=== PATIENT | female | born 1950 | race Hispanic/Latino ===

== ENCOUNTER 2018-04-23 17:50 | Emergency (ER) | payer MEDICARE, MEDICAID | END 2018-04-23 18:57 | disposition home or self-care (01) | LOC: ERS 17:50 | DX: T63.461A Toxic effect of venom of wasps, accidental (unintentional), initial encounter (principal); E11.9 Type 2 diabetes mellitus without complications; E78.5 Hyperlipidemia, unspecified; I10 Essential (primary) hypertension; F17.210 Nicotine dependence, cigarettes, uncomplicated; Z71.6 Tobacco abuse counseling | CPT/HCPCS: 90471; 99406 ==

== ENCOUNTER 2019-07-22 15:00 | Emergency (ER) | payer MEDICARE, OTHER ==
[2019-07-22] MEDS ORDERED: Lidocaine 1% (PF) 30 ML VIAL ONE (15:39)
[2019-07-22] MEDS ORDERED: Adacel (T-DAP) 0.5 ML SYRINGE ONE (16:44)
== END 2019-07-22 16:55 | disposition home or self-care (01) ==
LOC: ERS 15:00
DX: S61.210A Laceration without foreign body of right index finger without damage to nail, initial encounter (principal); E78.5 Hyperlipidemia, unspecified; I10 Essential (primary) hypertension; F17.210 Nicotine dependence, cigarettes, uncomplicated; F32.9 Major depressive disorder, single episode, unspecified; Z79.84 Long term (current) use of oral hypoglycemic drugs; W45.8XXA Other foreign body or object entering through skin, initial encounter
CPT/HCPCS: 12002; 90471; 90715; J2001

== ENCOUNTER 2019-08-06 15:20 | Emergency (ER) | payer MEDICARE, OTHER | END 2019-08-06 16:10 | disposition home or self-care (01) | LOC: ERS 15:20 | DX: S61.210D Laceration without foreign body of right index finger without damage to nail, subsequent encounter (principal); E11.9 Type 2 diabetes mellitus without complications; E78.5 Hyperlipidemia, unspecified; I10 Essential (primary) hypertension; Z87.891 Personal history of nicotine dependence; Z79.899 Other long term (current) drug therapy; W45.8XXD Other foreign body or object entering through skin, subsequent encounter ==

== ENCOUNTER 2019-08-09 10:56 | Inpatient (IN) | payer MEDICARE, MEDICAID ==
[2019-08-09 11:36] LABS: #Eosinphils 0.1 thou/uL (0.0-0.7); #Lymphocytes 1.2 thou/uL (1.20-3.40); #Monocytes 0.3 thou/uL (0.11-0.59); #Neutrophils 2.9 thou/uL (1.40-6.50); %Basophils 0.7 % (0.0-1.0); %Eosinophils 1.4 % (0.0-10.0); %Monocytes 7.1 % (0.0-10.0); %Neutrophils 63.8 % (42.0-75.0); Hemoglobin 6.4 g/dL (12.0-16.0); Mean Corpuscular HGB CONC 31.2 g/dL (32.0-36.0); Mean Corpuscular Hemoglobin 26.3 pg (27.0-31.0); Mean Platelet Volume 9.1 fL (7.4-10.4); Platelet Count 230 thou/uL (130-400); RBC Distribution Width 16.1 % (11.5-14.5); Red Blood Cell (RBC) Count 2.44 mill/uL (4.20-5.40); White Blood Cell (WBC) Count 4.5 thou/uL (4.8-10.8)
[2019-08-09] MEDS ORDERED: Iopamidol-370 76% 500 ML 1 ML ONE (11:41)
--- NOTE | 2019-08-09 11:43 | RAD ---
EXAM: Chest one view: HISTORY: Dyspnea, shortness of breath COMPARISON: 06/04/2016 FINDINGS: Monitor leads overlie the chest. Heart size: Within normal limits. Lungs: Clear of acute process. No evidence for confluent pneumonia, pleural effusion, acute edema, or pneumothorax, or other signifi cant acute process. IMPRESSION: No significant acute intrathoracic disease. Stable exam.
[2019-08-09 11:52] LABS: ALT (SGPT) 15 U/L (8-55); AST (SGOT) 21 U/L (5-34); Albumin 3.5 g/dL (3.4-4.8); Alkaline Phosphatase 111 U/L (40-110); Anion Gap 7 mmol/L (10-20); BUN (Urea Nitrogen) 6 mg/dL (9.8-20.1); Bilirubin, Total 0.5 mg/dL (0.2-1.2); Calc. Creatinine Clearance 0 mL/min (70-130); Calcium 8.3 mg/dL (7.8-10.44); Carbon Dioxide 26 mmol/L (23-31); Chloride 109 mmol/L (98-107); Estimated GFR-MDRD 86; Glucose 188 mg/dL (80-115); Potassium 3.4 mmol/L (3.5-5.1); Protein, Total 6.5 g/dL (6.0-8.3)
[2019-08-09 11:56] LABS: Sodium 139 mmol/L (136-145)
[2019-08-09 12:21] LABS: HBCM Index 0.08 S/CO (0-0.79); HBSAg Index 0.12 S/CO (0-0.99); Hep A IgM AB Non-Reactive (NonReactive); Hep A IgM S/CO 0.37 S/CO (0-0.79); Hep B Surf Ag Non-Reactive S/CO (NonReactive); Hep C IgG Ab Non-Reactive (NonReactive); Hep C Index 0.08 S/CO (0-0.79); Hepatitis B Core IgM Abs Non-Reactive (NonReactive)
--- NOTE | 2019-08-09 12:26 | CT ---
Exam: Chest abdomen and pelvic CT scan with IV contrast: HISTORY: Dyspnea abdominal pain shortness of breath FINDINGS: No significant acute pulmonary parenchymal process within the chest. No mediastinal mass or adenopath y. No significant pleural effusion or pericardial effusion. There is a [id number] stenosis of the proximal left subclavian artery. There is hepatosplenomegaly. There is some liver nodularity concerning for cirrhosis. Very extensive ascites throughout the abdomen and pelvis. Evidence for portal hypertension with some small perigastric and esophageal varices. Status post cholecystectomy. The portal vein is somewhat enlarged but no evidence for thrombosis. Pancreas and adrenal glands are unremarkable. No renal calculus or acute obstruction. No CT evidence for acute appendicitis. There is some diffuse wall thickening of the colon and also some moderate wall thickening of small bowel, nonspecific, this could well be related to generalized edema, associated with the ascites. Sigmoid colon diverticulosis without acute diverticulitis. Very mild anasarca. IMPRESSION: No significant acute process in the chest. Evidence for hepatosplenomegaly with portal hypertension and very extensive ascites with some fairly diffuse small bowel and colon wall thickening which may well be related to edema in association with the ascites. Small esophageal and gastric varices.
[2019-08-09] MEDS ORDERED: Pantoprazole 40 MG VIAL ONE (14:03)
[2019-08-09] MEDS ORDERED: Ondansetron PF 4 MG/2 ML Vial IVP PRN (15:05)
[2019-08-09] MEDS ORDERED: Dextrose 50% Abboject 50 ML SYRINGE SLOW IVP PRN (15:15)
[2019-08-09] MEDS ORDERED: HumaLOG 300 UNITS/3 ML VIAL SC PRN (15:15)
[2019-08-09] MEDS ORDERED: Dextrose 5% in Water 1,000 ML IV PRN (15:15)
[2019-08-09] MEDS ORDERED: Sodium Chloride 0.9% (PF) 10 ML VIAL FS PRN (18:48)
[2019-08-09 19:13] VITALS: BMI 27.8
--- NOTE | 2019-08-09 21:13 | HP ---
PRESENTING COMPLAINT: Abdominal bloating. HISTORY OF PRESENT ILLNESS: The patient with a past medical history of diabetes mellitus, hypertension, hyperlipidemia, and depression, presented with ongoing abdominal bloating and distention, which is going on for 1 month and today son got concerned and brought her to the hospital. The patient also has been complaining of shortness of breath on exertion and on lying down off and on. The patient denies any swelling of the feet. Denies any wheezing, or chest pain. She complains of mild headache, which is chronic and off and on. Denies any dizziness. Denies runny nose, stuffy nose, or sore throat. Denies any black color stool or blood in stool. As per patient, she had bowel movement this morning, it was brown in color. Her initial workup in the emergency room showed hepatosplenomegaly with portal hypertension and tentative ascites with esophageal and gastric paresis. The patient being admitted for further evaluation. Also, initial workup showed anemia. SYSTEMIC REVIEW: As mentioned above. PAST MEDICAL HISTORY: As mentioned above. PAST SURGICAL HISTORY: History of cholecystectomy, history of right ankle surgery, history of left knee surgery. SOCIAL HISTORY: The patient has a history of 1 to 2 pack cigarettes of smoking. Currently been smoking less than half pack per day. The patient also used to drink 5-6 beers, not been drinking from last 11 years, but has a history of a libertarian drinker. Denies any drug abuse. PHYSICAL EXAMINATION: VITAL SIGNS: Blood pressure 109/51, pulse 75, oxygen saturation 100%, temperature 98.6. GENERAL: The patient lying in bed comfortably, not in any distress. HEENT: Conjunctivae normal. Oral mucosa moist. NECK: Supple. No JVD. No lymphadenopathy. CHEST: Normal vesicular breathing. No rhonchi. No wheezing. Decreased air entry in bilateral lower lung cuevas. HEART: Sound normal. ABDOMEN: Distended. Shifting dullness positive. Fluid thrill positive. Mild edema of feet positive. LABORATORY DATA: CMP unremarkable except potassium 3.4, creatinine 0.68. LFTs normal. Hepatitis A, IgM, hepatitis B surface antigen negative, core antigen negative, C antibody negative. Troponin less than 0.010. CMP unremarkable. Alkaline phosphatase is 111, potassium 3.4, creatinine 0.68. Chest x-ray, no significant acute intrathoracic disease. Stable exam. Chest, abdomen, pelvis CT, no significant acute process in the chest. Evidence of hepatosplenomegaly with portal hypertension. Very extensive ascites with some diffuse fatty, fairly diffuse small bowel and colon wall thickening, which may well to be related to edema in association with ascites, small esophageal and gastric varices. IMPRESSION: 1. Abdominal distention with ascites and gastric varices with portal hypertension, possible underlying chronic liver disease related to history of EtOH abuse in the past. Hepatitis B surface antigen and C antigen are negative. We will continue diuretics at present. We will get GI evaluation. The patient may need diagnostic and therapeutic paracentesis in the morning. We will get GI evaluation. 2. Anemia, possibly related to anemia of chronic disease and possibly related to chronic gastrointestinal bleed. The patient denies any active bleed at present. Had a bowel movement this morning, it was brown in color. We will get stool for occult blood. The patient is currently getting 2 PRBC units in the emergency room. We will repeat H and H in the morning. Continue PPI. 3. Diabetes mellitus. We will continue sliding scale insulin. Continue to monitor blood sugar. 4. Hypertension. Continue to monitor blood pressure. Continue blood pressure medication. 5. Hyperlipidemia. We will get a lipid profile in the morning. 6. Advance directive discussed with the patient and the son, who is present at bedside. The patient is a full code. Job ID: [id number]
[2019-08-09] MEDS: Pantoprazole 40 MG VIAL IVP SCH (21:38)
[2019-08-09] MEDS: Nicotine 7 MG PATCH TD SCH (21:39)
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
[2019-08-10 01:20] LABS: Bacteria/HPF None Seen HPF (None Seen); Bilirubin Negative (Negative); Blood, Urine Negative (Negative); Clarity Clear (Clear); Glucose, Urine (Dipstick) Normal (Negative); Leukocyte Negative Leu/uL (Negative); Nitrite Negative (Negative); Protein, Urine (Dipstick) 10 mg/dL (Neg-Trace); RBC/HPF 0-3 HPF (0-3); Squamous Epithelial 0-3 HPF (0-3); Urobilinogen Normal mg/dL (Less than 2); WBC/HPF 0-3 HPF (0-3)
[2019-08-10] MEDS: Furosemide 40 MG/4 ML VIAL SLOW IVP SCH ×2 (06:05→14:16)
[2019-08-10] MEDS: Pantoprazole 40 MG VIAL IVP SCH ×2 (07:36→20:13)
[2019-08-10 08:41] LABS: #Basophils 0.1 thou/uL (0.0-0.2); #Eosinphils 0.1 thou/uL (0.0-0.7); #Lymphocytes 1.3 thou/uL (1.20-3.40); #Monocytes 0.4 thou/uL (0.11-0.59); #Neutrophils 2.1 thou/uL (1.40-6.50); %Basophils 1.3 % (0.0-1.0); %Eosinophils 1.9 % (0.0-10.0); %Lymphocytes 32.3 % (21.0-51.0); %Monocytes 10.8 % (0.0-10.0); %Neutrophils 53.6 % (42.0-75.0); Hemoglobin 6.7 g/dL (12.0-16.0); Mean Corpuscular HGB CONC 32.2 g/dL (32.0-36.0); Mean Corpuscular Hemoglobin 26.9 pg (27.0-31.0); Mean Corpuscular Volume 83.6 fL (78.0-98.0); Platelet Count 194 thou/uL (130-400); RBC Distribution Width 15.6 % (11.5-14.5); Red Blood Cell (RBC) Count 2.49 mill/uL (4.20-5.40); White Blood Cell (WBC) Count 3.9 thou/uL (4.8-10.8)
[2019-08-10 08:49] LABS: INR-International Normal Ratio 1.1; PTT 31.7 SEC (22.9-36.1); Prothrombin Time 13.7 SEC (12.0-14.7)
[2019-08-10 08:57] LABS: Anion Gap 10 mmol/L (10-20); BUN (Urea Nitrogen) 5 mg/dL (9.8-20.1); Calc. Creatinine Clearance 107 mL/min (70-130); Calcium 8.1 mg/dL (7.8-10.44); Carbon Dioxide 23 mmol/L (23-31); Chloride 109 mmol/L (98-107); Estimated GFR-MDRD Greater than 90; Glucose 96 mg/dL (80-115); Potassium 3.2 mmol/L (3.5-5.1); Sodium 139 mmol/L (136-145)
--- NOTE | 2019-08-10 11:07 | ULT ---
Ultrasound-guided paracentesis: 08/10/2019 HISTORY: Symptomatic ascites FINDINGS: Informed consent obtained prior to the procedure. Preprocedural imaging demonstrated signif icant ascites throughout the abdomen and pelvis. Right lower quadrant prepped and draped in normal sterile fashion and anesthetized with 1% buffered l idocaine. With direct sonographic guidance, 5 Bulgarian Yueh catheter is advanced into the ascites and removal of the stylet yielded yellow fluid. 2.1 L were removed. The patient tolerated the procedure well. No postprocedural complications. A specimen was sent to the laboratory for assessment. IMPRESSION: Successful ultrasound-guided paracentesis yielding 2.1 L of yellow fluid.
--- NOTE | 2019-08-10 12:06 | PRG ---
DATE OF SERVICE: 08/10/2019 SUBJECTIVE: Ms. Sakshi Ledesma is very pleasant 68-year-old female, hospitalized with abdominal distention and dyspnea. She was found to have ascites on admission. She underwent a large volume paracentesis with drainage of 2.5 L per day. The fluid was sent for culture, chemistries, and also cytology. She is feeling better after the paracentesis. She has no abdominal pain. She is not having difficulty breathing. OBJECTIVE: GENERAL: She appears relatively comfortable as she is not short winded. VITAL SIGNS: Temperature 98.1 degrees Fahrenheit, pulse is 76, blood pressure 107/58. CARDIOVASCULAR: Within normal limits. LUNGS: Within normal limits. ABDOMEN: Softer. There is distention. Abdomen is nontender. EXTREMITIES: Reveal no edema. LABORATORY DATA: From today, CBC; WBC 3900, hemoglobin 6.7, hematocrit 20.8, MCV 83.6, platelet count 194,000. Chem-7, normal except for potassium of 3.2. RECOMMENDATIONS: 1. Low-sodium diet. 2. We will plan for EGD tomorrow. Job ID: [id number]
[2019-08-10 12:43] LABS: RBC Count-Automated (BF) 0 /cumm; WBC/Nucleated-Auto (BF) 304 uL
[2019-08-10 13:29] LABS: BF Color Yellow; Body Fluid Source Ascites Body Fluid; Clarity Hazy (Clear); Tube # 1
[2019-08-10 13:38] LABS: BF Segmented Neutrophils 13 %; Cell Count Non Hematic 51 %; Eosinophils 3 %; Lymphocytes 33 %
--- NOTE | 2019-08-10 14:23 | PDOC.HOSPP ---
- Subjective Encounter Date: 08/10/19 Encounter Time: 13:00 Subjective: no abd pain or sob now feels better - Objective Vital Signs & Weight: Vital Signs (12 hours) Temp Pulse Resp BP Pulse Ox 08/10/19 11:37 98.1 F 76 20 107/58 L 98 08/10/19 10:45 98.1 F 74 20 97/56 L 97 08/10/19 07:40 98.5 F 84 20 99/60 99 08/10/19 07:35 99 08/10/19 06:07 76 115/60 08/10/19 04:00 98.7 F 77 16 109/56 L 97 Weight Admit Weight 162 lb 9 oz Weight 162 lb 9 oz I&O: 08/09/19 08/10/19 08/11/19 06:59 06:59 06:59 Intake Total 720 0 Balance 720 0 Result Diagrams: 08/10/19 06:45 08/10/19 06:45 Additional Labs: Accuchecks 08/10/19 08/10/19 08/09/19 11:57 04:39 20:09 POC Glucose 126 H 103 114 H Hospitalist ROS - Medication Medications: Active Medications Generic Name Dose Route Start Last Admin Trade Name Benjaminq PRN Reason Stop Dose Admin Furosemide 40 mg 08/10/19 06:00 08/10/19 14:16 Lasix SLOW IVP 40 mg 0600,1400 KINGA Administration Nicotine 7 mg 08/09/19 21:00 08/09/19 21:39 Nicoderm Patch TD 7 mg Q24HR KINGA Administration Pantoprazole Sodium 40 mg 08/09/19 21:00 08/10/19 07:36 Protonix IVP 40 mg Q12HR KINGA Administration Sodium Chloride 10 ml 08/09/19 21:00 08/10/19 07:36 Flush - Normal Saline IVF 10 ml Q12HR KINGA Administration - Exam General Appearance: NAD, awake alert Eye: PERRL, anicteric sclera ENT: no oropharyngeal lesions, moist mucosa Neck: supple, no JVD Heart: RRR, no murmur Respiratory: no wheezes, no rales Gastrointestinal: soft, non-tender, normal bowel sounds Gastrointestinal - other findings: ascites++ Extremities: no cyanosis, no edema Neurological: cranial nerve grossly intact, no focal deficits Psychiatric: normal affect, A&O x 3 Hosp A/P (1) Cirrhosis Code(s): K74.60 - UNSPECIFIED CIRRHOSIS OF LIVER Status: Acute Qualifiers: Hepatic cirrhosis type: alcoholic cirrhosis Ascites presence: with ascites Qualified Code(s): K70.31 - Alcoholic cirrhosis of liver with ascites (2) Ascites Code(s): R18.8 - OTHER ASCITES Status: Acute Qualifiers: Ascites type: due to alcoholic cirrhosis Qualified Code(s): K70.31 - Alcoholic cirrhosis of liver with ascites (3) DM type 2 (diabetes mellitus, type 2) Status: Chronic Qualifiers: Diabetes mellitus terminal computer operator insulin use: without terminal computer operator use (4) HTN (hypertension) Code(s): I10 - ESSENTIAL (PRIMARY) HYPERTENSION Status: Chronic Qualifiers: Hypertension type: essential hypertension Qualified Code(s): I10 - Essential (primary) hypertension (5) Dyslipidemia Code(s): E78.5 - HYPERLIPIDEMIA, UNSPECIFIED Status: Chronic (6) Depression Code(s): F32.9 - MAJOR DEPRESSIVE DISORDER, SINGLE EPISODE, UNSPECIFIED Status : Chronic Qualifiers: Depression Type: major depressive disorder (7) Chronic anemia Code(s): D64.9 - ANEMIA, UNSPECIFIED Status: Chronic - Plan total of 2 u prbc given this hosp had paracentesis with removal of 2.1 L yellow fluid for EGD in am, has varices on CT continue protonix, lasix, will add nonselective BB in am after EGD hep panel is -ve, stopped drinking heavy alc 11 yrs ago hemostable labs in am
[2019-08-10] MEDS: Potassium Chloride 20 MEQ TAB PO SCH ×2 (18:16→23:55)
[2019-08-10] MEDS: Nicotine 7 MG PATCH TD SCH (20:13)
[2019-08-11] MEDS: Potassium Chloride 20 MEQ TAB PO SCH ×2 (05:42→12:07)
[2019-08-11] MEDS: Furosemide 40 MG/4 ML VIAL SLOW IVP SCH (05:43)
[2019-08-11] MEDS: Pantoprazole 40 MG VIAL IVP SCH (08:22)
[2019-08-11] MEDS ORDERED: Ondansetron HCl/PF 4 MG/2 ML Vial IVP PRN (08:40)
[2019-08-11] MEDS ORDERED: Lidocaine 1% PF 5 ML VIAL ONE (09:39)
[2019-08-11] MEDS ORDERED: PROPOFOL 200 MG/20 ML VIAL ONE (09:39)
--- NOTE | 2019-08-11 11:03 | OP ---
DATE OF PROCEDURE: 08/11/2019 PROCEDURE PERFORMED: Esophagogastroduodenoscopy with biopsy. PREOPERATIVE DIAGNOSES: This is a 68-year-old female with anemia, history of tarry stools 3 weeks ago. The patient underwent esophagogastroduodenoscopy. POSTOPERATIVE DIAGNOSES: 1. Three columns of 4+ varicosities distal esophagus, nonbleeding. 2. No gastric varices seen. 3. Small ulcer of the gastric antrum. 4. Ulcer duodenal bulb. DESCRIPTION OF PROCEDURE: The patient was placed on her left lateral position and was given sedation by Anesthesia Department. A Pentax video gastroscope under direct vision passed down the oropharynx, past the GE junction into the stomach. The patient had three columns of 4+ varicosities over the distal esophagus. There was no stigmata of recent bleeding seen. In the GE junction, no lesion seen. Retroflexion failed to show any pathology in the fundus and cardia. There were no gastric varices seen. In the gastric body, no lesions seen. The gastric antrum showed a small shallow ulceration. In the incisura angularis, no lesion seen. The duodenal bulb showed ulceration. In the descending duodenum, no pathology seen. Biopsy obtained of the gastric antrum and gastric body. The stomach was decompressed and the scope removed. RECOMMENDATIONS: 1. Start the patient on propranolol long-acting 20 mg once a day. 2. Start the patient on Lasix 40 once a day. 3. Aldactone 50 once a day. 4. Pantoprazole 40 once a day. Job ID: [id number]
[2019-08-11 12:42] LABS: #Eosinphils 0.1 thou/uL (0.0-0.7); #Lymphocytes 1.1 thou/uL (1.20-3.40); #Monocytes 0.3 thou/uL (0.11-0.59); %Basophils 0.7 % (0.0-1.0); %Monocytes 8.2 % (0.0-10.0); %Neutrophils 58.1 % (42.0-75.0); Hemoglobin 7.8 g/dL (12.0-16.0); Mean Corpuscular HGB CONC 32.1 g/dL (32.0-36.0); Mean Corpuscular Hemoglobin 27.1 pg (27.0-31.0); Mean Corpuscular Volume 84.6 fL (78.0-98.0); Mean Platelet Volume 8.8 fL (7.4-10.4); Platelet Count 144 thou/uL (130-400); RBC Distribution Width 15.8 % (11.5-14.5); Red Blood Cell (RBC) Count 2.89 mill/uL (4.20-5.40); White Blood Cell (WBC) Count 3.5 thou/uL (4.8-10.8)
[2019-08-11 13:15] LABS: ALT (SGPT) 14 U/L (8-55); AST (SGOT) 34 U/L (5-34); Albumin 3.3 g/dL (3.4-4.8); Alkaline Phosphatase 107 U/L (40-110); Anion Gap 10 mmol/L (10-20); BUN (Urea Nitrogen) 7 mg/dL (9.8-20.1); Bilirubin, Total 0.7 mg/dL (0.2-1.2); Calc. Creatinine Clearance 88 mL/min (70-130); Calcium 8.1 mg/dL (7.8-10.44); Carbon Dioxide 25 mmol/L (23-31); Chloride 108 mmol/L (98-107); Estimated GFR-MDRD 84; Globulin 2.9 g/dL (2.4-3.5); Glucose 196 mg/dL (80-115); Potassium 3.6 mmol/L (3.5-5.1); Protein, Total 6.2 g/dL (6.0-8.3); Sodium 139 mmol/L (136-145)
--- NOTE | 2019-08-11 13:32 | PDOC.HOSPP ---
- Subjective Encounter Date: 08/11/19 Encounter Time: 09:00 Subjective: no abd pain or sob - Objective Vital Signs & Weight: Vital Signs (12 hours) Temp Pulse Resp BP Pulse Ox 08/11/19 11:25 97.8 F 72 20 105/64 100 08/11/19 10:57 98 F 71 20 107/52 L 98 08/11/19 07:19 98.6 F 76 20 92/47 L 99 08/11/19 05:44 106/58 L 08/11/19 04:00 97.7 F 74 16 95/56 L 93 L Weight Admit Weight 162 lb 9 oz Weight 162 lb 9 oz I&O: 08/10/19 08/11/19 08/12/19 06:59 06:59 06:59 Intake Total 720 1610 Output Total 2100 Balance 720 -490 Result Diagrams: 08/11/19 12:32 08/11/19 12:32 Additional Labs: Accuchecks 08/11/19 08/11/19 08/10/19 11:29 05:07 19:34 POC Glucose 114 H 127 H 128 H 08/10/19 16:01 POC Glucose 156 H Hospitalist ROS - Medication Medications: Active Medications Generic Name Dose Route Start Last Admin Trade Name Freq PRN Reason Stop Dose Admin Insulin Human Lispro 0 units 08/09/19 15:15 08/10/19 16:47 Humalog SC 2 unit .MILD SLIDING SCALE PRN Administration Mild Correctional Scale Nicotine 7 mg 08/09/19 21:00 08/10/19 20:13 Nicoderm Patch TD 7 mg Q24HR KINGA Administration Sodium Chloride 10 ml 08/09/19 21:00 08/11/19 08:22 Flush - Normal Saline IVF 10 ml Q12HR KINGA Administration - Exam General Appearance: awake alert Eye: PERRL, anicteric sclera ENT: no oropharyngeal lesions, moist mucosa Neck: supple, no JVD Heart: RRR, no murmur Respiratory: no wheezes, no rales Gastrointestinal: soft, non-tender, normal bowel sounds Extremities: no cyanosis, no edema Neurological: cranial nerve grossly intact, no focal deficits Psychiatric: normal affect, A&O x 3 Hosp A/P (1) Cirrhosis Code(s): K74.60 - UNSPECIFIED CIRRHOSIS OF LIVER Status: Acute Qualifiers: Hepatic cirrhosis type: alcoholic cirrhosis Ascites presence: with ascites Qualified Code(s): K70.31 - Alcoholic cirrhosis of liver with ascites (2) Ascites Code(s): R18.8 - OTHER ASCITES Status: Acute Qualifiers: Ascites type: due to alcoholic cirrhosis Qualified Code(s): K70.31 - Alcoholic cirrhosis of liver with ascites (3) DM type 2 (diabetes mellitus, type 2) Status: Chronic Qualifiers: Diabetes mellitus terminal carman insulin use: without terminal carman use (4) HTN (hypertension) Code(s): I10 - ESSENTIAL (PRIMARY) HYPERTENSION Status: Chronic Qualifiers: Hypertension type: essential hypertension Qualified Code(s): I10 - Essential (primary) hypertension (5) Dyslipidemia Code(s): E78.5 - HYPERLIPIDEMIA, UNSPECIFIED Status: Chronic (6) Depression Code(s): F32.9 - MAJOR DEPRESSIVE DISORDER, SINGLE EPISODE, UNSPECIFIED Status : Chronic Qualifiers: Depression Type: major depressive disorder (7) Chronic anemia Code(s): D64.9 - ANEMIA, UNSPECIFIED Status: Chronic (8) Duodenal ulcer Status: Acute - Plan total of 2 u prbc given this hospitalization, Hb stable this am, no signs of active bleeding on EGD had paracentesis with removal of 2.1 L yellow fluid EGD shows esophageal varices, no gastric varices, had duodenal ulcer with no active bleeding. continue protonix, lasix, spironolactone and propranolol. hep panel is -ve, stopped drinking heavy alc 11 yrs ago hemostable labs in am dc plan in am if stable, sbp around 100 asymptomatic
[2019-08-11] MEDS: Spironolactone 25 MG TAB PO SCH (16:46)
[2019-08-11] MEDS: Nicotine 7 MG PATCH TD SCH (20:52)
[2019-08-11] MEDS: Propranolol HCl 20 MG TAB PO SCH (20:52)
[2019-08-12 06:48] LABS: #Eosinphils 0.1 thou/uL (0.0-0.7); #Lymphocytes 1.2 thou/uL (1.20-3.40); #Monocytes 0.3 thou/uL (0.11-0.59); #Neutrophils 1.7 thou/uL (1.40-6.50); %Basophils 0.4 % (0.0-1.0); %Eosinophils 2.3 % (0.0-10.0); %Lymphocytes 36.2 % (21.0-51.0); %Monocytes 9.2 % (0.0-10.0); Hemoglobin 7.4 g/dL (12.0-16.0); Mean Corpuscular HGB CONC 31.7 g/dL (32.0-36.0); Mean Corpuscular Volume 85.3 fL (78.0-98.0); Mean Platelet Volume 9.1 fL (7.4-10.4); Platelet Count 124 thou/uL (130-400); Red Blood Cell (RBC) Count 2.73 mill/uL (4.20-5.40); White Blood Cell (WBC) Count 3.2 thou/uL (4.8-10.8)
[2019-08-12 07:10] LABS: ALT (SGPT) 17 U/L (8-55); AST (SGOT) 35 U/L (5-34); Albumin 3.1 g/dL (3.4-4.8); Alkaline Phosphatase 107 U/L (40-110); Anion Gap 8 mmol/L (10-20); BUN (Urea Nitrogen) 8 mg/dL (9.8-20.1); Bilirubin, Total 0.5 mg/dL (0.2-1.2); Calc. Creatinine Clearance 105 mL/min (70-130); Calcium 7.8 mg/dL (7.8-10.44); Carbon Dioxide 23 mmol/L (23-31); Chloride 111 mmol/L (98-107); Estimated GFR-MDRD Greater than 90; Globulin 2.8 g/dL (2.4-3.5); Glucose 112 mg/dL (80-115); Potassium 3.7 mmol/L (3.5-5.1); Protein, Total 5.9 g/dL (6.0-8.3); Sodium 138 mmol/L (136-145)
[2019-08-12] MEDS: Spironolactone 25 MG TAB PO SCH ×2 (08:49→17:02)
[2019-08-12] MEDS: Propranolol HCl 20 MG TAB PO SCH ×3 (08:51→21:02)
[2019-08-12] MEDS: Furosemide 40 MG TAB PO SCH (08:51)
--- NOTE | 2019-08-12 13:15 | PQF ---
CLINICAL DOCUMENTATION IMPROVEMENT CLARIFICATION FORM: ICD-10 Updated PLEASE DO AN ADDENDUM TO THE PROGRESS NOTE WITH ANY DOCUMENTATION UPDATES OR ADDITIONS AND CARRY THROUGH TO DC SUMMARY. THANK YOU. Date: 08/12/2019 ATTN: Dr. Greenfield Please exercise your independent, professional judgment in responding to the clarification form. Clinical indicators are provided on the bottom of this form for your review Please check appropriate box(s): [ ] Protein Calorie Malnutrition: [ ] Mild [ ] Moderate [ ] Severe [ ] Other Malnutrition (please specify) [ ] Underweight without malnutrition [ ] Cachexia [ x] Other diagnosis _has cirrhosis with low albumin [ ] Unable to determine In addition, please specify: Present on Admission (POA): [x ] Yes [ ] No [ ] Unable to determine CLINICAL INDICATORS - SIGNS / SYMPTOMS / LABS / RESULTS AND LOCATION IN MR 08/09 ( Aracelis) : The pt tells me she has lost nearly about 40 pounds over the last probably 1 year or so. She used to weigh 200 pounds before , now her weight is down to 160 pounds. Deputy Manager Assessment 08/10: Nutrition diagnosis: Malnutrition related to cirrhosis, ascites, early satiety As Evidenced By patient and family report of very limited PO intake x1 year likely meeting <50% of estimated needs, 26% weight loss in 1 year based on admit weight now with a 2.1 L removed s/p paracentesis suggestive of severe malnutrition in the context of chronic illness. RISKS: 08/09 ( Aracelis) The patient has history of chronic alcohol abuse for several years. 08/10 ( Jean Pierre) Alcoholic cirrhosis of liver with ascites. TREATMENT: Deputy Manager Assessment 08/10: for MST Score 5 ( > 34 lb wt loss, poor appetite) Order 08/10: Supp: Albertina Dietrich BID Moderate Malnutrition (in acute illness) Energy Intake: <75% of estimated energy requirement for > 7 days Weight Loss: 1-2%/1 week; 5%/ 1 month; 7.5%/3 months Other: mild body fat loss; mild muscle mass loss; mild fluid accumulation; Severe Malnutrition (in acute illness) Energy Intake: < 50% of estimated energy requirement for > 5 days Weight Loss: >1-2%/1 week; >5%/1 month; >7.5%/3 months Other: moderate body fat loss; moderate muscle mass loss; moderate- severe fluid accumulation; measurably reduced director of sales strength Moderate Malnutrition (in chronic illness) Energy Intake: <75% of estimated energy requirement for >1 month Weight Loss: 5%/1 month; 7.5%/3 months; 10%/6 months; 20%/1 year Other: mild body fat loss; mild muscle mass loss; mild fluid accumulation Severe Malnutrition (in chronic illness) Energy Intake: <75% of estimated energy requirement for >1 month Weight Loss: >5%/1 month; >7.5%/3 months; >10%/6 months; >20%/1 year Other: severe body fat loss; severe muscle mass loss; severe fluid accumulation; measurably reduced director of sales strength Thank you, Ramona (This form is maintained as a part of the permanent medical record) 2015 [employer]. All Rights Reserved Ramona Yeh RN, BSN [email or web address] Office: [phone] [facility]
--- NOTE | 2019-08-12 14:29 | PDOC.HOSPP ---
- Subjective Encounter Date: 08/12/19 Encounter Time: 08:15 Subjective: no abd pain or nausea no active bleeding is ambulating in room, no dizziness - Objective Vital Signs & Weight: Vital Signs (12 hours) Temp Pulse Resp BP Pulse Ox 08/12/19 12:00 98.1 F 66 18 97/59 L 100 08/12/19 08:53 98 08/12/19 08:48 98/60 08/12/19 07:20 98.3 F 71 20 92/49 L 98 08/12/19 04:00 98.0 F 77 16 97/59 L 97 Weight Admit Weight 162 lb 9 oz Weight 162 lb 9 oz I&O: 08/11/19 08/12/19 08/13/19 06:59 06:59 06:59 Intake Total 1610 1300 Output Total 2100 Balance -490 1300 Result Diagrams: 08/12/19 06:19 08/12/19 06:19 Additional Labs: Accuchecks 08/12/19 08/12/19 08/11/19 11:25 04:42 19:40 POC Glucose 112 H 111 H 173 H 08/11/19 16:09 POC Glucose 135 H Hospitalist ROS - Medication Medications: Active Medications Generic Name Dose Route Start Last Admin Trade Name Freq PRN Reason Stop Dose Admin Furosemide 40 mg 08/12/19 09:00 08/12/19 08:51 Lasix PO 40 mg DAILY KINGA Administration Insulin Human Lispro 0 units 08/09/19 15:15 08/10/19 16:47 Humalog SC 2 unit .MILD SLIDING SCALE PRN Administration Mild Correctional Scale Nicotine 7 mg 08/09/19 21:00 08/11/19 20:52 Nicoderm Patch TD 7 mg Q24HR KINGA Administration Pantoprazole Sodium 40 mg 08/12/19 09:00 08/12/19 08:50 Protonix PO 40 mg DAILY KINGA Administration Propranolol HCl 20 mg 08/11/19 21:00 08/12/19 09:00 Inderal PO 20 mg BID KINGA Administration Sodium Chloride 10 ml 08/09/19 21:00 08/12/19 08:51 Flush - Normal Saline IVF 10 ml Q12HR KINGA Administration Spironolactone 25 mg 08/11/19 17:00 08/12/19 08:49 Aldactone PO 25 mg BID-WM KINGA Administration - Exam General Appearance: NAD, awake alert Eye: PERRL, anicteric sclera ENT: no oropharyngeal lesions, moist mucosa Neck: supple, no JVD Heart: RRR, no murmur Respiratory: no wheezes, no rales Gastrointestinal: soft, non-tender, non-distended, normal bowel sounds Extremities: no cyanosis, no edema Neurological: cranial nerve grossly intact, no focal deficits Psychiatric: normal affect, A&O x 3 Hosp A/P (1) Cirrhosis Code(s): K74.60 - UNSPECIFIED CIRRHOSIS OF LIVER Status: Acute Qualifiers: Hepatic cirrhosis type: alcoholic cirrhosis Ascites presence: with ascites Qualified Code(s): K70.31 - Alcoholic cirrhosis of liver with ascites (2) Ascites Code(s): R18.8 - OTHER ASCITES Status: Acute Qualifiers: Ascites type: due to alcoholic cirrhosis Qualified Code(s): K70.31 - Alcoholic cirrhosis of liver with ascites (3) DM type 2 (diabetes mellitus, type 2) Status: Chronic Qualifiers: Diabetes mellitus skilled nursing insulin use: without tool sharpener use (4) HTN (hypertension) Code(s): I10 - ESSENTIAL (PRIMARY) HYPERTENSION Status: Chronic Qualifiers: Hypertension type: essential hypertension Qualified Code(s): I10 - Essential (primary) hypertension (5) Dyslipidemia Code(s): E78.5 - HYPERLIPIDEMIA, UNSPECIFIED Status: Chronic (6) Depression Code(s): F32.9 - MAJOR DEPRESSIVE DISORDER, SINGLE EPISODE, UNSPECIFIED Status : Chronic Qualifiers: Depression Type: major depressive disorder (7) Chronic anemia Code(s): D64.9 - ANEMIA, UNSPECIFIED Status: Chronic (8) Duodenal ulcer Status: Acute - Plan total of 3 u prbc given this hospitalization, Hb around 7g, no signs of active bleeding on EGD had paracentesis with removal of 2.1 L yellow fluid EGD shows esophageal varices, no gastric varices, had duodenal ulcer with no active bleeding. continue protonix, lasix, spironolactone and propranolol, add midodrine for low sbp (asymptomatic now) hep panel is -ve, stopped drinking heavy alc 11 yrs ago hemostable dc plan in am, d/w
--- NOTE | 2019-08-12 15:31 | PRG ---
DATE OF SERVICE: 08/12/2019 SUBJECTIVE: This is a 68-year-old female hospitalized for ascites. The patient has no prior history of liver disease. She had an abdominal CAT scan done. It did show nodular liver, ascites. She underwent paracentesis over the weekend. The fluid is go in favor of liver cirrhosis. The patient had done well after the paracentesis. She feels better. No abdominal pain. No nausea or vomiting. She had anemia on admission, her hemoglobin stays around 6.7 to 7.8 and today 7.4. She has no overt bleeding. The patient has still ascites, but not as bad as before. She is on a low-sodium diet. She also has esophageal varices during EGD. There were nonbleeding. The patient also is on pantoprazole. She offers no complaints. She denies abdominal pain, any dark stools, nausea, or vomiting. PHYSICAL EXAMINATION: GENERAL: Appears very comfortable. VITAL SIGNS: Stable. Temperature 98.1 degrees Fahrenheit, pulse is 66, and blood pressure 97/59. CARDIOVASCULAR: Lungs within normal limits. ABDOMEN: Soft. Abdomen is distended with ascites. Abdomen is nontender. No organomegaly. No masses. CLINICAL IMPRESSION: 1. Liver cirrhosis due to alcohol abuse. She has stopped drinking several years ago. 2. Ascites. 3. Portal hypertension, esophageal varices. 4. Gastric ulcer. RECOMMENDATIONS: 1. Start the patient on midodrine 5 mg p.o. 3 times a day. 2. Low-dose Lasix and Aldactone. 3. May transfuse one more unit of blood before she can go home. She will come back to see me in the next couple of weeks. We will make a referral to a liver transplant program in [place]. Job ID: [id number]
[2019-08-12] MEDS: Nicotine 7 MG PATCH TD SCH (21:02)
[2019-08-12] MEDS: Midodrine HCl 5 MG TAB PO SCH (21:02)
[2019-08-13 07:56] LABS: #Eosinphils 0.1 thou/uL (0.0-0.7); #Lymphocytes 1.3 thou/uL (1.20-3.40); #Monocytes 0.4 thou/uL (0.11-0.59); #Neutrophils 1.7 thou/uL (1.40-6.50); %Basophils 0.5 % (0.0-1.0); %Eosinophils 3.8 % (0.0-10.0); %Lymphocytes 37.3 % (21.0-51.0); %Monocytes 10.5 % (0.0-10.0); %Neutrophils 47.9 % (42.0-75.0); Hemoglobin 9.3 g/dL (12.0-16.0); Mean Corpuscular HGB CONC 32.1 g/dL (32.0-36.0); Mean Corpuscular Hemoglobin 27.6 pg (27.0-31.0); Mean Corpuscular Volume 85.8 fL (78.0-98.0); Mean Platelet Volume 9.3 fL (7.4-10.4); Platelet Count 115 thou/uL (130-400); RBC Distribution Width 15.5 % (11.5-14.5); Red Blood Cell (RBC) Count 3.36 mill/uL (4.20-5.40); White Blood Cell (WBC) Count 3.6 thou/uL (4.8-10.8)
[2019-08-13 08:07] LABS: Anion Gap 11 mmol/L (10-20); BUN (Urea Nitrogen) 9 mg/dL (9.8-20.1); Calc. Creatinine Clearance 95 mL/min (70-130); Carbon Dioxide 22 mmol/L (23-31); Chloride 110 mmol/L (98-107); Estimated GFR-MDRD Greater than 90; Glucose 111 mg/dL (80-115); Potassium 3.7 mmol/L (3.5-5.1); Sodium 139 mmol/L (136-145)
[2019-08-13] MEDS: Furosemide 40 MG TAB PO SCH (08:37)
[2019-08-13] MEDS: Spironolactone 25 MG TAB PO SCH (08:37)
[2019-08-13] MEDS: Propranolol HCl 20 MG TAB PO SCH (08:37)
[2019-08-13] MEDS: Midodrine HCl 5 MG TAB PO SCH (08:37)
[2019-08-13 11:43] VITALS: BP 101/53; TEMP 97.5
--- NOTE | 2019-08-14 13:50 | DIS ---
DATE OF ADMISSION: 08/09/2019 DATE OF DISCHARGE: 08/13/2019 DISCHARGE DISPOSITION: Home. PRIMARY DISCHARGE DIAGNOSES: New onset cirrhosis due to prior history of heavy alcohol abuse; ascites, status post paracentesis; chronic anemia; diabetes mellitus, type 2; hypertension; dyslipidemia; depression; duodenal ulcer. PROCEDURES DONE DURING HOSPITALIZATION: The patient has had abdominal paracentesis done with removal of 2.[address] chest, abdomen and pelvis done on the day of admission showed hepatosplenomegaly with portal hypertension and very extensive ascites with fairly diffuse small bowel and colonic wall thickening, small esophageal and gastric varices. Upper endoscopy done by Dr. Hsu on 08/11/2019 showed three columns of 4+ varicosities in the distal esophagus, which were not bleeding. No gastric varices were seen. Small ulcer in the gastric antrum. There was ulcer in the duodenal bulb. Gastric biopsy histopathology shows no H pylori organisms. There is chronic inactive gastritis with intestinal metaplasia seen. Ascitic fluid culture showed no growth in 4 days. H and H 9.3 and 28 on the day of discharge. Initial H and H were 6.4 and 20. MCV is 84, platelet count 230. BUN 9, creatinine 0.6, total bilirubin 0.5, AST 35, ALT 17, alkaline phosphatase 107, albumin is 3.1. BUN 8 and creatinine 0.5. PT, INR, and PTT within normal limits. Hepatitis panel was negative. INPATIENT CONSULT: Dr. Hsu for Gastroenterology. DISCHARGE PLAN: The patient to follow up with Dr. Isa Steven, primary care physician, in 1 week. She needs to follow up with Dr. Hsu, house painter, in 2 weeks. DISCHARGE MEDICATIONS: 1. Metformin 500 mg p.o. twice daily. 2. Oxybutynin extended release 5 mg p.o. daily. 3. Crestor 20 mg p.o. daily. 4. Lasix 40 mg p.o. daily. 5. Midodrine 5 mg twice daily. 6. Protonix 40 mg p.o. daily. 7. Propranolol 20 mg twice daily. 8. Spironolactone 25 mg twice daily. ALLERGIES: NO KNOWN DRUG ALLERGIES. BRIEF COURSE DURING HOSPITALIZATION: The patient initially got hospitalized on the with complaints of abdominal bloating. She was found to have had ascites clinically and had a CT chest and abdomen done. The patient had findings of ascites with hepatosplenomegaly and varices in the esophagus and stomach. Her initial hemoglobin was 6. Gastroenterology consultation with Dr. Hsu was requested. The patient had prior history of heavy alcohol abuse and had quit 11 years back. Upper endoscopy done showed four columns of varices in the esophagus, but none in the stomach. There was no active bleeding. She was also found to have had ulcer in the gastric antrum and in the duodenal bulb. The patient received a total of 3 units of packed cell during her stay here. Her discharge hemoglobin is around 9 g. The patient's medications have been optimized for cirrhosis to prevent recurrent ascites. She is on propranolol, spironolactone, Protonix, and Lasix. Midodrine was added due to low blood pressures with systolic blood pressures in the 90s, although she was asymptomatic. Please note, I have seen and examined the patient on the day of discharge. She is hemodynamically stable and has been cleared for discharge by Dr. Hsu. Job ID: [id number]
== END 2019-08-13 11:43 | disposition home or self-care (01) | DRG 433 ==
LOC: ERS 10:56 → T4-A 14:40
PROVIDERS: ADMIT Internal Medicine; ATTEND Internal Medicine
PROC: 0W9G3ZZ Drainage of Peritoneal Cavity, Percutaneous Approach (ICD-10-PCS; principal; 2019-08-10)
PROC: 0DB68ZX Excision of Stomach, Via Natural or Artificial Opening Endoscopic, Diagnostic (ICD-10-PCS; 2019-08-11)
DX: K70.31 Alcoholic cirrhosis of liver with ascites (principal); K76.6 Portal hypertension; I85.00 Esophageal varices without bleeding; K26.3 Acute duodenal ulcer without hemorrhage or perforation; E78.5 Hyperlipidemia, unspecified; I10 Essential (primary) hypertension; E11.9 Type 2 diabetes mellitus without complications; F32.9 Major depressive disorder, single episode, unspecified; D64.9 Anemia, unspecified; F17.210 Nicotine dependence, cigarettes, uncomplicated; Z90.49 Acquired absence of other specified parts of digestive tract
CPT/HCPCS: 36415; 36416; 36430; 49083; 71045; 71260; 74177; 80048; 80053; 80074; 81001; 82945; 83605; 83615; 83880; 84157; 84484; 85025; 85060; 85610; 85730; 86850; 86900; 86901; 87070; 87205; 88305; 88312; 88342; 89051; 93005; 94760; 96374; C9113; J1940; J2001; J2704; P9016; Q9967

== ENCOUNTER 2020-10-21 13:57 | Inpatient (IN) | payer MEDICARE, MEDICAID ==
[~2020-10-21 13:57] MED LIST: Heparin 10,000 UNITS/ 10 ML VIAL ONE
[2020-10-21] MEDS ORDERED: Calcium Gluc 4.6 MEQ/10 ML (100 MG/ML) ONE ×2 (14:11→14:27)
--- NOTE | 2020-10-21 14:45 | RAD ---
PORTABLE CHEST: 10/21/20 HISTORY: Dyspnea. COMPARISON: 08/09/19 exam. Heart size is within normal limits. There are atherosclerotic changes of the aorta. The lungs are nicolette ar of any infiltrative process. No significant bony findings. IMPRESSION: No active intrathoracic disease. POS: [facility]
[2020-10-21 14:52] LABS: #Basophils 0.1 thou/uL (0.0-0.2); #Eosinphils 0.1 thou/uL (0.0-0.7); #Monocytes 0.6 thou/uL (0.11-0.59); #Neutrophils 5.7 thou/uL (1.40-6.50); %Basophils 0.8 % (0.0-1.0); %Lymphocytes 32.3 % (21.0-51.0); %Neutrophils 59.9 % (42.0-75.0); Hemoglobin 11.3 g/dL (12.0-16.0); Mean Corpuscular HGB CONC 32.6 g/dL (32.0-36.0); Mean Corpuscular Hemoglobin 29.1 pg (27.0-31.0); Mean Corpuscular Volume 89.5 fL (78.0-98.0); Mean Platelet Volume 9.5 fL (7.4-10.4); Platelet Count 197 thou/uL (130-400); RBC Distribution Width 15.3 % (11.5-14.5); Red Blood Cell (RBC) Count 3.89 mill/uL (4.20-5.40); White Blood Cell (WBC) Count 9.4 thou/uL (4.8-10.8)
[2020-10-21 15:12] LABS: ALT (SGPT) 18 U/L (8-55); AST (SGOT) 25 U/L (5-34); Albumin 4.1 g/dL (3.4-4.8); Alkaline Phosphatase 98 U/L (40-110); Anion Gap 18 mmol/L (10-20); BUN (Urea Nitrogen) 30 mg/dL (9.8-20.1); Bilirubin, Total 0.5 mg/dL (0.2-1.2); Calc. Creatinine Clearance 0 mL/min (70-130); Calcium 9.4 mg/dL (7.8-10.44); Carbon Dioxide 15 mmol/L (23-31); Chloride 105 mmol/L (98-107); Glucose 168 mg/dL (83-110); Magnesium 2.5 mg/dL (1.6-2.6); Protein, Total 8.1 g/dL (5.8-8.1); Sodium 130 mmol/L (136-145)
[2020-10-21 15:30] LABS: Potassium 8.1 mmol/L (3.5-5.1)
[2020-10-21] MEDS ORDERED: Insulin Regular 300 UNITS/3 ML VIAL ONE (15:47)
[2020-10-21] MEDS ORDERED: Dextrose 50% Abboject 50 ML SYRINGE ONE ×2 (15:47→15:48)
[2020-10-21] MEDS ORDERED: Bicillin LA 2.4 MILL.UNITS/4 ML SYRINGE ONE (15:50)
[2020-10-21] MEDS ORDERED: Sodium Bicarbonate 2.5 MEQ/5 ML VIAL ONE (15:50)
[2020-10-21 15:51] LABS: Bacteria/HPF 4+ HPF (None Seen); Bilirubin Negative (Negative); Blood, Urine Negative (Negative); Clarity Clear (Clear); Glucose, Urine (Dipstick) Normal (Negative); Ketone, Urine Negative (Negative); Leukocyte Negative Leu/uL (Negative); Nitrite Negative (Negative); Protein, Urine (Dipstick) 30 mg/dL (Neg-Trace); RBC/HPF None Seen HPF (0-3); Specific Gravity, Urine 1.012 (1.002-1.036); Squamous Epithelial 0-3 HPF (0-3); Urobilinogen Normal mg/dL (Less than 2); WBC/HPF 0-3 HPF (0-3)
[2020-10-21] MEDS ORDERED: Sodium Bicarb 50 MEQ/50 ML Abboject 8.4% SYRINGE ONE (15:57)
[2020-10-21] MEDS ORDERED: Lidocaine 2% PF 5 ML VIAL ONE (15:57)
[2020-10-21 16:22] LABS: Base Excess-Venous -7.9 mmol/L (-2.0 to 3.0); Bicarbonate (HCO3v) 16.9 mmol/L (22.0-28.0); CO2 Tension (PvCO2) 31.6 mmHg (40.0-50.0); Calcium, Ionized 1.13 mmol/L (1.15-1.33); Chloride 107 mmol/L (98-107); Potassium 7.5 mmol/L (3.5-5.1); Sodium 131 mmol/L (138-145); T. Carbon Dioxide 17.9 mmol/L (22.0-28.0); vO2 Saturation-calc 65.8 % (60.0-85.0)
[2020-10-21] MEDS ORDERED: Cefepime 2 GM VIAL ONE (16:52)
--- NOTE | 2020-10-21 16:59 | PDOC.HHP ---
Hospitalist HPI weakness History of Present Illness: This is a 69 year old female with a past medical history of cirrhosis with esop hageal banding done one week ago who presented with weakness since yesterday. The patient states she was unable to stand, felt weak and felt like her whole body was going numb. She reports feeling dizzy and lightheaded upon sitting and standing. Her weakness was not focal and she denied facial droop, headache, speech difficulties or dysarthria. She does not know what her normal blood pressures are usually, but says when she saw Dr. Grey yesterday for a routine follow up, her blood pressure was low and her lasix was discontinued. Due to persistent symptoms, she came to the ER. She denies nausea, vomiting, diarrhea, blood in her stools, fevers, chills, cough, dysuria, sore throat, runny nose. She denies weight loss in the past few weeks. ED Course: When she presented to the ER, her BP was 91 systolic, HR 56, rest of vitals were normal. Labs showed Hb 11.3, sodium 130, potassium of 8.1, bicarbonate of 15, creatinine of 2.44, lactic acid of 2.7, calcium of 1.13. EKG showed right bundle branch block. Chest X ray was normal. THe patient was given 2grams of cefepime, 2 gram of calcium gluconate, 500 ml normal saline, 1 amp D50, 5 units of insulin, 1 amp of bicarbonate, 4 puffs of albuterol. Nephrology was consulted and the patient will be started on dialysis emergency. Allergies/Adverse Reactions: Allergy/AdvReac Type Severity Reaction Status Date / Time No Known Allergies Allergy Verified 08/09/19 19:14 Home Medications: Medication Instructions Recorded Confirmed Type Oxybutynin Chloride [Oxybutynin 5 mg PO DAILY 08/09/19 08/09/19 History Chloride ER] Rosuvastatin [Crestor] 20 mg PO DAILY 08/09/19 08/09/19 History metFORMIN [Glucophage] 500 mg PO BID- 08/09/19 08/09/19 History Furosemide [Lasix] 40 mg PO DAILY #30 tab 08/13/19 Rx Midodrine HCl [ProAmatine] 5 mg PO BID #60 tab 08/13/19 Rx Pantoprazole [Protonix] 40 mg PO DAILY #30 tab 08/13/19 Rx Propranolol HCl [Inderal] 20 mg PO BID #60 tab 08/13/19 Rx Spironolactone [Aldactone] 25 mg PO BID-WM #60 tab 08/13/19 Rx Past History: PMHx: cirrhosis of the liver PSHx: cholecystectomy screw on ankle and knee FHx: mother of cirrhosis Social: Use to drink 3-4 beers every 4 weeks. Has not drank in 9 years. Smoke 4 packs of cigarettes of every 2 weeks. No cocaine, heroin, or marijuana Hospitalist HPI ROS Constitutional: denies: fever, chills Eyes: denies: pain, vision change, other ENT: denies: ear pain, ear discharge Respiratory: reports: cough (thinks it is secondary to banding) Cardiovascular: reports: palpitations (last night) Gastrointestinal: denies: nausea, vomiting, abdominal pain, diarrhea Genitourinary: reports: frequency. denies: dysuria Skin: denies: rash, lesions Hospitalist Exam General Appearance: NAD, awake alert Eye: PERRL, anicteric sclera ENT: normocephalic atraumatic Neck: supple, symmetric, no JVD Heart: RRR, no murmur, no gallops, no rubs Respiratory: CTAB, no wheezes, no rales, no ronchi Gastrointestinal: soft, non-tender, non-distended, normal bowel sounds Extremities: no cyanosis, no clubbing, no edema Skin: normal turgor, no lesions, no rashes Neurological: cranial nerve grossly intact, normal sensation to touch, no weakness Musculoskeletal: normal tone, normal strength, no muscle wasting Psychiatric: normal affect, normal behavior, A&O x 3 Hospitalist Results Result Diagrams: 10/21/20 14:24 10/21/20 14:25 Lab results: Laboratory Last Values WBC 9.4 thou/uL (4.8-10.8) 10/21/20 14:24 RBC 3.89 mill/uL (4.20-5.40) L 10/21/20 14:24 Hgb 11.3 g/dL (12.0-16.0) L 10/21/20 14:24 Hct 34.8 % (36.0-47.0) L 10/21/20 14:24 POC Venous Hct 32.0 % (36.0-47.0) L 10/21/20 16:18 MCV 89.5 fL (78.0-98.0) 10/21/20 14:24 MCH 29.1 pg (27.0-31.0) 10/21/20 14:24 MCHC 32.6 g/dL (32.0-36.0) 10/21/20 14:24 RDW 15.3 % (11.5-14.5) H 10/21/20 14:24 Plt Count 197 thou/uL (130-400) 10/21/20 14:24 MPV 9.5 fL (7.4-10.4) 10/21/20 14:24 Neutrophils % 59.9 % (42.0-75.0) 10/21/20 14:24 Lymphocytes % 32.3 % (21.0-51.0) 10/21/20 14:24 Monocytes % 6.0 % (0.0-10.0) 10/21/20 14:24 Eosinophils % 1.0 % (0.0-10.0) 10/21/20 14:24 Basophils % 0.8 % (0.0-1.0) 10/21/20 14:24 Neutrophils # 5.7 thou/uL (1.40-6.50) 10/21/20 14:24 Lymphocytes # 3.0 thou/uL (1.20-3.40) 10/21/20 14:24 Monocytes # 0.6 thou/uL (0.11-0.59) H 10/21/20 14:24 Eosinophils # 0.1 thou/uL (0.0-0.7) 10/21/20 14:24 Basophils # 0.1 thou/uL (0.0-0.2) 10/21/20 14:24 POC Bicarbonate Calc 16.9 mmol/L (22.0-28.0) L 10/21/20 16:18 POC VBG pH 7.337 (7.320-7.430) 10/21/20 16:18 VBG pCO2 31.6 mmHg (40.0-50.0) L 10/21/20 16:18 VBG pO2 35.8 mmHg (35.0-45.0) 10/21/20 16:18 POC VBG CO2 (Calc) 17.9 mmol/L (22.0-28.0) L 10/21/20 16:18 POC VBG O2 Sat (Calc) 65.8 % (60.0-85.0) 10/21/20 16:18 POC VBG Base Excess -7.9 mmol/L (-2.0 to 3.0) L 10/21/20 16:18 POC VBG Hemoglobin Calc 11.0 g/dL (12.0-16.0) L 10/21/20 16:18 POC Venous Sodium 131 mmol/L (138-145) L 10/21/20 16:18 Sodium 130 mmol/L (136-145) L 10/21/20 14:25 POC Venous Potassium 7.5 mmol/L (3.5-5.1) H* 10/21/20 16:18 Potassium 8.1 mmol/L (3.5-5.1) H* 10/21/20 14:25 POC Venous Chloride 107 mmol/L (98-107) 10/21/20 16:18 Chloride 105 mmol/L (98-107) 10/21/20 14:25 Carbon Dioxide 15 mmol/L (23-31) L 10/21/20 14:25 Anion Gap 18 mmol/L (10-20) 10/21/20 14:25 POC Kulwant Anion Gap Calc 15 mmol/L (10-20) 10/21/20 16:18 BUN 30 mg/dL (9.8-20.1) H 10/21/20 14:25 Creatinine 2.44 mg/dL (0.6-1.1) H 10/21/20 14:25 Estimated GFR (MDRD) 20 10/21/20 14:25 Glucose 168 mg/dL (83-110) H 10/21/20 14:25 Lactic Acid 2.7 mmol/L (0.5-2.2) H 10/21/20 14:24 Calcium 9.4 mg/dL (7.8-10.44) 10/21/20 14:25 POC Venous Ion Calcium 1.13 mmol/L (1.15-1.33) L 10/21/20 16:18 Magnesium 2.5 mg/dL (1.6-2.6) 10/21/20 14:25 Total Bilirubin 0.5 mg/dL (0.2-1.2) 10/21/20 14:25 AST 25 U/L (5-34) 10/21/20 14:25 ALT 18 U/L (8-55) 10/21/20 14:25 Alkaline Phosphatase 98 U/L (40-110) 10/21/20 14:25 Troponin I Less than 0.010 ng/mL (< 0.028) 10/21/20 14:25 B-Natriuretic Peptide 448.2 pg/mL (0-100) H 10/21/20 14:25 Serum Total Protein 8.1 g/dL (5.8-8.1) 10/21/20 14:25 Albumin 4.1 g/dL (3.4-4.8) 10/21/20 14:25 Globulin 4.0 g/dL (2.4-3.5) H 10/21/20 14:25 Albumin/Globulin Ratio 1.0 g/dL (1.2-2.2) L 10/21/20 14:25 Urine Color Light-Yellow (Yellow) 10/21/20 15:30 Urine Clarity Clear (Clear) 10/21/20 15:30 Urine pH 6.0 (5.0-9.0) 10/21/20 15:30 Ur Specific [place] 1.012 (1.002-1.036) 10/21/20 15:30 Urine Protein 30 mg/dL (Neg-Trace) A 10/21/20 15:30 Urine Glucose (UA) Normal mg/dL (Negative) 10/21/20 15:30 Urine Ketones Negative mg/dL (Negative) 10/21/20 15:30 Urine Blood Negative (Negative) 10/21/20 15:30 Urine Nitrite Negative (Negative) 10/21/20 15:30 Urine Bilirubin Negative (Negative) 10/21/20 15:30 Urine Urobilinogen Normal mg/dL (Less than 2) 10/21/20 15:30 Ur Leukocyte Esterase Negative Giorgi/uL (Negative) 10/21/20 15:30 Urine RBC None Seen HPF (0-3) 10/21/20 15:30 Urine WBC 0-3 HPF (0-3) 10/21/20 15:30 Ur Squamous Epith Cells 0-3 HPF (0-3) 10/21/20 15:30 Urine Bacteria 4+ HPF (None Seen) A 10/21/20 15:30 Critical Linnette Read Back Critical Value 10/21/20 16:18 Hospitalist H&P A/P Plan: THis is a 69 year old female with past medical history of cirrhosis, presenting to the ER with dizziness, found to be hypotensive and in acute renal failure #Acute renal failure - possibly from ATN vs hepatorenal? #Hyperkalemia #Hyponatremia - creatinine 2.4, potassium 8.1, sodium of 130. Was on spironolactone, lasix, and propranolol as an outpatient for cirrhosis - starting on dialysis emergently, trialysis catheter was placed in right cath . Repeat BMP after dialysis - will start on IV fluids gentle hydration - admit to I[facility] Diabetes type II - fingersticks achs, insulin sliding scale - diabetic diet Hypertension - hold home medicine Cirrhosis with history of varices - will hold propranolol for now and hold diuretics Anemia - Hb 11.3, had esophageal banding last week Hypocalcemia - s/p 2 grams of calcium. Will repeat after dialysis DVT prophylaxis: hold lovenox for now Code status: full code
[2020-10-21] MEDS ORDERED: Ondansetron ODT 4 MG TAB PO PRN (17:08)
[2020-10-21] MEDS ORDERED: Dextrose 50% Abboject 50 ML SYRINGE SLOW IVP PRN (17:10)
[2020-10-21] MEDS ORDERED: Dextrose 5% in Water 1,000 ML IV PRN (17:10)
[2020-10-21] MEDS ORDERED: Sodium Chloride 0.9% 1,000 ML IV SCH (17:30)
[2020-10-21 18:05] LABS: HBSAB Concentration Less than 8.00 mIU/mL; Hep B Core Total Ab Non-Reactive (NonReactive); Hep B Core Total Index 0.06 S/CO (0-0.79); Hep B Surf AB Non-Reactive (NonReactive); Hep B Surf Ag Non-Reactive S/CO (NonReactive); Hep C IgG Ab Non-Reactive (NonReactive); Hep C Index 0.12 S/CO (0-0.79)
[2020-10-21] MEDS ORDERED: Sodium Bicarbonate 150 MEQ in Dextrose 5% in Water 1,000 ML IVP SCH (18:30)
[2020-10-21 21:40] LABS: Anion Gap 14 mmol/L (10-20); BUN (Urea Nitrogen) 16 mg/dL (9.8-20.1); Calc. Creatinine Clearance 0 mL/min (70-130); Calcium 8.9 mg/dL (7.8-10.44); Carbon Dioxide 25 mmol/L (23-31); Chloride 103 mmol/L (98-107); Glucose 80 mg/dL (83-110); Potassium 4.2 mmol/L (3.5-5.1); Sodium 138 mmol/L (136-145)
[2020-10-21] MEDS ORDERED: Midodrine HCl 5 MG TAB PO SCH (21:45)
[2020-10-22] MEDS ORDERED: Sodium Chloride 0.9% 250 ML IV SCH ×2 (01:00→02:00)
[2020-10-22] MEDS ORDERED: Norepinephrine 8 MG/0.9% NS 250 ML ONE (03:36)
--- NOTE | 2020-10-22 03:38 | PDOC.BPN ---
- Brief Progress Note Encounter Date: 10/22/20 Patient was admitted on account of JESSICA and is postdialysis with correction of her hyperkalemia. She keeps going into hypotension with maps below 65. I gave her 2 boluses of 250 mils to make a total of 500 mils. She also has dextrose and bicarb running at 75 mils per hour. It is unclear whether her renal function has recovered now so I want to limit the amount of fluid. We will support her blood pressure with Levophed and give a another bolus of 500 mils while we try to titrate her off Levophed. Placing Villalpando catheter to monitor renal outputapparently she has been anuric for the past 4 hours
[2020-10-22] MEDS ORDERED: Norepinephrine 8 MG/0.9% NS 250 ML IVPB SCH (05:45)
--- NOTE | 2020-10-22 07:03 | CON ---
DATE OF CONSULTATION: CONSULTING PHYSICIAN: Fred Harmon MD REQUESTING PHYSICIAN: ER physician and Dr. Reddy. REASON FOR CONSULTATION: Severe hyperkalemia, [id number] kidney disease. IMPRESSION: 1. Severe hyperkalemia. This is likely in the context of medication side effects in this case spironolactone compounded by the reduced GFR. 2. Pbvte-ty-fsoxyan kidney disease. This is possibly a component of hepatorenal syndrome plus or minus hemodynamically-mediated prerenal acute kidney injury in the context of low blood pressure. 3. Cirrhosis, status post esophageal banding. PLAN: 1. Emergent dialysis because of severe symptomatic hyperkalemia. 2. Gentle rehydration with IV fluid. 3. Discontinue spironolactone, discontinue Lasix, and discontinue the metformin. 4. Renally dose all medications and avoid potentially nephrotoxic agents. 5. We will re-evaluate the electrolytes and renal function in the next 24 hours, status post hemodialysis. HISTORY OF PRESENT ILLNESS: History is that of a 69-year-old female patient with history of possible biliary cirrhosis, status post esophageal banding, who presented here with symptomatic hyperkalemia as evidenced by muscle weakness, and on re-evaluation, noted with the potassium above 8. EKG changes. The patient also does have a slightly elevated creatinine at 2.0. As a result of these findings the decision was made to involve Renal in the management of this case. PAST MEDICAL HISTORY: Significant for biliary cirrhosis, status post esophageal banding. MEDICATIONS: Reviewed as documented on [employer]. FAMILY HISTORY: Significant for the mother, who had possible biliary cirrhosis. REVIEW OF SYSTEMS: As documented in the body of history, all the other systems were reviewed and found not to be significantly related to present illness. SOCIAL HISTORY: Significant for tobacco. No significant alcohol or illicit drug use. PHYSICAL EXAMINATION: GENERAL: The patient was found to be in no obvious distress with labile hemodynamics with systolic blood pressure in the 80s. HEENT: Unremarkable. CARDIOVASCULAR SYSTEM: First and second heart sounds were heard. RESPIRATORY SYSTEM: Clear to auscultation. DIGESTIVE SYSTEM: Revealed a benign abdomen with positive bowel sounds. EXTREMITIES: No peripheral edema. SKIN: No new gross rash. LYMPHATICS: No peripheral lymphadenopathy. In summary, a 69-year-old female patient, who presented here with severe symptomatic hyperkalemia. Thank you for this consultation. We will follow with you. Job ID: [id number]
[2020-10-22 07:25] LABS: SARS-CoV-2 PCR by NAA Not Detected (NotDetected)
[2020-10-22] MEDS ORDERED: Famotidine 20 MG TAB ONE (08:34)
[2020-10-22] MEDS ORDERED: Famotidine/PF 20 mg/2ml Vial ONE (08:34)
[2020-10-22] MEDS: Famotidine/PF 20 mg/2ml Vial SLOW IVP SCH (08:51)
[2020-10-22] MEDS: Midodrine HCl 5 MG TAB PO SCH ×3 (08:58→21:31)
[2020-10-22 09:51] LABS: Hemoglobin 9.3 g/dL (12.0-16.0); Mean Corpuscular HGB CONC 32.7 g/dL (32.0-36.0); Mean Corpuscular Hemoglobin 28.6 pg (27.0-31.0); Mean Corpuscular Volume 87.4 fL (78.0-98.0); Platelet Count 160 thou/uL (130-400); RBC Distribution Width 15.3 % (11.5-14.5); Red Blood Cell (RBC) Count 3.26 mill/uL (4.20-5.40); White Blood Cell (WBC) Count 8.1 thou/uL (4.8-10.8)
[2020-10-22 10:16] LABS: Anion Gap 15 mmol/L (10-20); BUN (Urea Nitrogen) 13 mg/dL (9.8-20.1); Calc. Creatinine Clearance 0 mL/min (70-130); Calcium 8.5 mg/dL (7.8-10.44); Carbon Dioxide 21 mmol/L (23-31); Chloride 102 mmol/L (98-107); Glucose 356 mg/dL (83-110); Potassium 3.7 mmol/L (3.5-5.1); Sodium 134 mmol/L (136-145)
--- NOTE | 2020-10-22 10:59 | PDOC.HOSPP ---
- Subjective Encounter Date: 10/22/20 Encounter Time: 10:57 Subjective: F/u: acute renal failure Overnight, the patient was hypotensive and started on levofed and given some fluid boluses THe patient complains of a headache today, states that she took a nap and woke up and still has a headache. BP 111 systolic, MAP 75. She has urinated some, but not much She worked with physical therapy today and was a little unsteady - Objective Vital Signs & Weight: Vital Signs (12 hours) Temp Pulse BP BP BP Pulse Ox 10/22/20 09:17 88 110/55 L 104/56 L 107/71 99 10/22/20 06:45 98.4 F 10/22/20 04:48 98.2 F 10/22/20 03:45 98.8 F 10/22/20 02:45 97.9 F Most Recent Monitor Data Heart Rate from ECG 86 NIBP 105/64 NIBP BP-Mean 77 Respiration from ECG 20 SpO2 99 Result Diagrams: 10/22/20 09:45 10/22/20 09:45 Additional Labs: Accuchecks 10/21/20 22:01 POC Glucose 74 Hospitalist ROS - Review of Systems Constitutional: denies: fever, chills, sweats - Medication Medications: Active Medications Generic Name Dose Route Start Last Admin Trade Name Fabiola PRN Reason Stop Dose Admin Famotidine 20 mg 10/22/20 09:00 10/22/20 08:51 Famotidine/Pf 20 Mg/2ml Vial SLOW IVP 20 mg DAILY KINGA Administration Midodrine 10 mg 10/22/20 09:00 10/22/20 08:58 Midodrine Hcl 5 Mg Tab PO 10 mg TID KINGA Administration Pantoprazole Sodium 40 mg 10/22/20 09:00 10/22/20 08:59 Pantoprazole 40 Mg Tab PO 40 mg DAILY KINGA Administration Sodium Chloride 10 ml 10/21/20 21:00 10/22/20 09:00 Flush - Normal Saline 10 Ml Syringe IVF 10 ml Q12HR KINGA Administration Hospitalist Exam Vitals: Vital Signs (12 hours) Temp Pulse BP BP BP Pulse Ox 10/22/20 09:17 88 110/55 L 104/56 L 107/71 99 10/22/20 06:45 98.4 F 10/22/20 04:48 98.2 F 10/22/20 03:45 98.8 F 10/22/20 02:45 97.9 F Most Recent Monitor Data Heart Rate from ECG 86 NIBP 105/64 NIBP BP-Mean 77 Respiration from ECG 20 SpO2 99 General Appearance: NAD, awake alert Eye: PERRL, anicteric sclera ENT: normocephalic atraumatic, no oropharyngeal lesions Neck: no JVD Heart: RRR, no murmur, no gallops, no rubs Respiratory: CTAB, no wheezes, no rales, no ronchi Gastrointestinal: soft, non-tender, non-distended, normal bowel sounds Extremities: no cyanosis, no clubbing, no edema Skin: normal turgor, no lesions, no rashes Neurological: cranial nerve grossly intact, normal sensation to touch, no focal deficits, no new deficit Musculoskeletal: normal tone, normal strength, no muscle wasting Psychiatric: normal affect, normal behavior, A&O x 3 Hosp A/P - Plan THis is a 69 year old female with past medical history of cirrhosis, presenting to the ER with dizziness, found to be hypotensive and in acute renal failure #Acute renal failure - possibly from ATN vs hepatorenal? #Hyperkalemia- resolved #Hypotension - patient received emergent dialysis overnight. Creatinine improved from 2.4 to 1.3 and is back up to 1.5. - started on IV fluids overnight. Will attempt to wean levofed down and wean off fluids eventuallly - appreciate nephrology recommendations Hyponatremia - improved, sodium up to 134 Diabetes type II - fingersticks achs, insulin sliding scale . Blood sugar 356, possibly from levofed/bicarb drip. Attempt to wean off - diabetic diet Hypertension - hold home medicine Cirrhosis with history of varices - will hold propranolol for now and hold diuretics Anemia - Hb 9.3, had esophageal banding last week . Likely dilutional, monitor for any bleeding Hypocalcemia -resolved DVT prophylaxis: hold lovenox for now, ambulation, SCDS Code status: full code
[2020-10-22] MEDS ORDERED: HumaLOG 300 UNITS/3 ML VIAL ONE (11:54)
[2020-10-22] MEDS: Sodium Chloride 0.9% 1,000 ML IV SCH (12:00)
[2020-10-22] MEDS: HumaLOG 300 UNITS/3 ML VIAL SC PRN ×2 (12:01→21:33)
[2020-10-22] MEDS ORDERED: Acetaminophen 325 MG Suppository ONE (12:17)
[2020-10-22] MEDS ORDERED: Acetaminophen 325 MG TAB ONE (12:17)
[2020-10-22] MEDS: Acetaminophen 325 MG TAB PO PRN (12:19)
--- NOTE | 2020-10-22 20:28 | PRG ---
DATE OF SERVICE: 10/22/2020 SUBJECTIVE: The patient seems to be doing much better and noted with the following vital signs. OBJECTIVE: VITAL SIGNS: Afebrile, temperature 98.4, pulse 88, blood pressure 110/55. HEENT: Unremarkable. CARDIOVASCULAR SYSTEM: First and second heart sounds were heard. RESPIRATORY SYSTEM: Clear to auscultation. DIGESTIVE SYSTEM: Revealed a benign abdomen. Positive bowel sounds. EXTREMITIES: No peripheral edema. SKIN: No new gross rash. LYMPHATIC: No peripheral lymphadenopathy. LABORATORY INVESTIGATION: Showed a hemoglobin of 9.3. Creatinine of 1.58 with potassium of 3.7. IMPRESSION: 1. Severe hyperkalemia, improved, status post one session of hemodialysis. 2. Igycz-[id number] kidney disease. 3. Liver cirrhosis. PLAN: 1. No indication for hemodialysis today, but we will continue with hemodynamics support. 2. Discontinue bicarb drip. 3. If by tomorrow the patient's renal function and electrolytes remain stable, we will remove the dialysis catheter. 4. Further management to be dependent on the clinical course. Job ID: [id number]
[2020-10-23 02:11] VITALS: BMI 29.3
[2020-10-23 03:13] LABS: Hemoglobin 8.8 g/dL (12.0-16.0); Mean Corpuscular HGB CONC 32.7 g/dL (32.0-36.0); Mean Corpuscular Volume 88.7 fL (78.0-98.0); Mean Platelet Volume 8.8 fL (7.4-10.4); Platelet Count 120 thou/uL (130-400); RBC Distribution Width 15.3 % (11.5-14.5); Red Blood Cell (RBC) Count 3.02 mill/uL (4.20-5.40); White Blood Cell (WBC) Count 5.1 thou/uL (4.8-10.8)
[2020-10-23 03:33] LABS: Anion Gap 13 mmol/L (10-20); BUN (Urea Nitrogen) 11 mg/dL (9.8-20.1); Calc. Creatinine Clearance 43 mL/min (70-130); Calcium 8.3 mg/dL (7.8-10.44); Carbon Dioxide 19 mmol/L (23-31); Chloride 108 mmol/L (98-107); Glucose 126 mg/dL (83-110); Potassium 3.4 mmol/L (3.5-5.1); Sodium 137 mmol/L (136-145)
[2020-10-23] MEDS ORDERED: Norepinephrine 8 MG/0.9% NS 250 ML IVPB SCH (05:00)
[2020-10-23] MEDS: Sodium Chloride 0.9% 1,000 ML IV SCH (09:16)
[2020-10-23] MEDS: Midodrine HCl 5 MG TAB PO SCH ×3 (09:16→20:11)
[2020-10-23] MEDS: Famotidine/PF 20 mg/2ml Vial SLOW IVP SCH (09:17)
[2020-10-23] MEDS: Acetaminophen 325 MG TAB PO PRN (09:17)
[2020-10-23] MEDS: HumaLOG 300 UNITS/3 ML VIAL SC PRN ×2 (16:57→21:08)
--- NOTE | 2020-10-23 17:28 | PDOC.HOSPP ---
- Subjective Encounter Date: 10/23/20 Encounter Time: 08:30 Subjective: Patient seen for follow-up regarding acute kidney injury. She reports feeling better. - Objective Vital Signs & Weight: Vital Signs (12 hours) Temp BP BP Pulse Ox Pulse Ox 10/23/20 14:11 127/58 L 88/54 L 100 99 10/23/20 12:00 98.0 F 10/23/20 08:00 97.6 F 10/23/20 06:00 97.5 F L Weight Weight 170 lb 13.732 oz Most Recent Monitor Data Heart Rate from ECG 76 NIBP 98/47 NIBP BP-Mean 64 Respiration from ECG 18 SpO2 100 I&O: 10/22/20 10/23/20 10/24/20 06:59 06:59 06:59 Intake Total 1017 820 Output Total 100 600 Balance 917 220 Result Diagrams: 10/23/20 03:06 10/23/20 03:06 Additional Labs: Accuchecks 10/23/20 10/23/20 10/22/20 11:17 06:12 21:30 POC Glucose 173 H 114 H 152 H 10/22/20 17:35 POC Glucose 132 H Labs and MAR reviewed by me EKG Reviewed by me: Yes (Telemetry shows normal sinus rhythm) Hospitalist ROS - Review of Systems Cardiovascular: denies: chest pain, palpitations, orthopnea, paroxysmal noc. dyspnea, edema, light headedness Gastrointestinal: denies: nausea, vomiting, abdominal pain, diarrhea, constipation, melena, hematochezia - Medication Medications: Active Medications Generic Name Dose Route Start Last Admin Trade Name Benjaminq PRN Reason Stop Dose Admin Acetaminophen 650 mg 10/21/20 17:08 10/23/20 09:17 Acetaminophen 325 Mg Tab PO 650 mg Q4H PRN Administration Headache/Fever/Mild Pain (1-3) Sodium Chloride 1,000 mls @ 50 mls/hr 10/22/20 11:15 10/23/20 09:16 Normal Saline 0.9% IV 1,000 mls .Q20H KINGA Administration Norepinephrine Bitartrate 250 mls @ 0 mls/hr 10/23/20 05:00 10/23/20 14:43 Levophed IVPB 250 mls INF KINGA Administration Protocol Titrate Insulin Human Lispro 0 units 10/21/20 17:10 10/23/20 16:57 Humalog 300 Units/3 Ml Vial SC 4 unit .MILD SLIDING SCALE PRN Administration Mild Correctional Scale Midodrine 10 mg 10/22/20 09:00 10/23/20 15:02 Midodrine Hcl 5 Mg Tab PO 10 mg TID KINGA Administration Pantoprazole Sodium 40 mg 10/22/20 09:00 10/23/20 09:16 Pantoprazole 40 Mg Tab PO 40 mg DAILY KINGA Administration Sodium Chloride 10 ml 10/21/20 21:00 10/23/20 09:17 Flush - Normal Saline 10 Ml Syringe IVF 10 ml Q12HR KINGA Administration Hospitalist Exam Vitals: Vital Signs (12 hours) Temp BP BP Pulse Ox Pulse Ox 10/23/20 14:11 127/58 L 88/54 L 100 99 10/23/20 12:00 98.0 F 10/23/20 08:00 97.6 F 10/23/20 06:00 97.5 F L Weight Weight 170 lb 13.732 oz Most Recent Monitor Data Heart Rate from ECG 76 NIBP 98/47 NIBP BP-Mean 64 Respiration from ECG 18 SpO2 100 General Appearance: awake alert Eye: anicteric sclera ENT: normocephalic atraumatic Neck: supple Heart: RRR Respiratory: CTAB Gastrointestinal: soft, non-tender Extremities: no cyanosis Skin: no rashes Psychiatric: normal affect, normal behavior Hosp A/P - Plan #Acute renal failure - possibly from ATN vs hepatorenal? -Creatinine improved to 1.47 today #Hypotension -Improved #Diabetes type II -Continue Accu-Cheks and insulin sliding scale. - diabetic diet #Cirrhosis with history of varices -Propranolol is on hold #Anemia - Hb 8.8 today. -She had esophageal banding 1 week ago. -Anemia is likely dilutional, monitor for any bleeding #Hypocalcemia -resolved #Hyperkalemia - resolved #Hyponatremia -Resolved
--- NOTE | 2020-10-23 19:35 | PRG ---
DATE OF SERVICE: 10/23/2020 OBJECTIVE: VITAL SIGNS: The patient noted with following vital signs; blood pressure 120/61, pulse 79, respiratory rate of 29, and O2 saturation of 99%. HEENT: Unremarkable. CARDIOVASCULAR SYSTEM: First and second heart sounds were heard. RESPIRATORY SYSTEM: Clear to auscultation. DIGESTIVE SYSTEM: Revealed a benign abdomen with positive bowel sounds. EXTREMITIES: No peripheral edema. SKIN: No new gross rash. LYMPHATICS: No peripheral lymphadenopathy. LABORATORY INVESTIGATION: Showed a creatinine down to 1.47. IMPRESSION: 1. Acute on chronic kidney disease, which seems to have improved. 2. Hyperkalemia, resolved, status post one session of hemodialysis. PLAN: 1. The dialysis is apparently discontinued. 2. Remove femoral dialysis catheter. 3. Further management to be dependent on the clinical course. Job ID: [id number]
[2020-10-23] MEDS ORDERED: FLU VACC QS2020-21(65YR UP)/PF 240 MCG/0.7 ML SYRINGE IM ONE (21:00)
[2020-10-24] MEDS: Acetaminophen 325 MG TAB PO PRN (00:35)
[2020-10-24] MEDS: Sodium Chloride 0.9% 1,000 ML IV SCH ×2 (03:09→21:38)
[2020-10-24] MEDS: Midodrine HCl 5 MG TAB PO SCH ×3 (09:27→21:38)
--- NOTE | 2020-10-24 09:31 | PDOC.HOSPP ---
- Subjective Encounter Date: 10/24/20 Encounter Time: 09:25 Subjective: f/u for JESSICA/ATN, cirrhosis s/p HD with resolving JESSICA. Off pressor support for hypotension with SBP in low 100's. - Objective Vital Signs & Weight: Vital Signs (12 hours) Temp 10/24/20 04:00 98.3 F 10/24/20 00:00 98.1 F Weight Weight 170 lb 13.732 oz Most Recent Monitor Data Heart Rate from ECG 80 NIBP 104/51 NIBP BP-Mean 68 Respiration from ECG 16 SpO2 96 I&O: 10/23/20 10/24/20 10/25/20 06:59 06:59 06:59 Intake Total 1017 1994.4 Output Total 100 1600 Balance 917 394.4 Result Diagrams: 10/23/20 03:06 10/23/20 03:06 Additional Labs: Accuchecks 10/24/20 10/23/20 10/23/20 06:35 21:05 11:17 POC Glucose 110 H 152 H 173 H Microbiology 10/21/20 16:49 Venous blood - Right Arm Blood Culture - Preliminary NO GROWTH AT 48 HOURS 10/21/20 16:49 Venous blood - Left Hand Blood Culture - Preliminary NO GROWTH AT 48 HOURS Laboratory Tests 10/21/20 10/21/20 10/21/20 14:24 14:25 20:44 Hgb 11.3 L Creatinine 2.44 H SARS-CoV-2 RNA (TEMO) Not Detected 10/21/20 10/22/20 10/22/20 Unknown 09:45 09:45 Hgb 9.3 L Creatinine 1.32 H 1.58 H SARS-CoV-2 RNA (TEMO) EKG Reviewed by me: Yes (Tele - SR) Hospitalist ROS - Medication Medications: Active Medications Generic Name Dose Route Start Last Admin Trade Name Freq PRN Reason Stop Dose Admin Acetaminophen 650 mg 10/21/20 17:08 10/24/20 00:35 Acetaminophen 325 Mg Tab PO 650 mg Q4H PRN Administration Headache/Fever/Mild Pain (1-3) Sodium Chloride 1,000 mls @ 50 mls/hr 10/22/20 11:15 10/24/20 03:09 Normal Saline 0.9% IV 1,000 mls .Q20H KINGA Administration Norepinephrine Bitartrate 250 mls @ 0 mls/hr 10/23/20 05:00 10/23/20 14:43 Levophed IVPB 250 mls INF KINGA Administration Protocol Titrate Insulin Human Lispro 0 units 10/21/20 17:10 10/23/20 21:08 Humalog 300 Units/3 Ml Vial SC 2 unit .MILD SLIDING SCALE PRN Administration Mild Correctional Scale Midodrine 10 mg 10/22/20 09:00 10/23/20 20:11 Midodrine Hcl 5 Mg Tab PO 10 mg TID KINGA Administration Pantoprazole Sodium 40 mg 10/22/20 09:00 10/23/20 09:16 Pantoprazole 40 Mg Tab PO 40 mg DAILY KINGA Administration Sodium Chloride 10 ml 10/21/20 21:00 10/23/20 20:12 Flush - Normal Saline 10 Ml Syringe IVF 10 ml Q12HR KINGA Administration Hospitalist Exam Vitals: Vital Signs (12 hours) Temp 10/24/20 04:00 98.3 F 10/24/20 00:00 98.1 F Weight Weight 170 lb 13.732 oz Most Recent Monitor Data Heart Rate from ECG 80 NIBP 104/51 NIBP BP-Mean 68 Respiration from ECG 16 SpO2 96 General Appearance: NAD, awake alert Eye: PERRL, anicteric sclera ENT: normocephalic atraumatic, no oropharyngeal lesions, moist mucosa Neck: supple, symmetric, no JVD, no thyromegaly, no lymphadenopathy Heart: RRR, no gallops, no rubs, normal peripheral pulses Heart - other findings: S1, S2 Respiratory: CTAB, no wheezes, no rales, no ronchi, normal chest expansion Gastrointestinal: soft, non-tender, non-distended, normal bowel sounds, no palpable masses Extremities: no cyanosis, no clubbing, no edema Skin: normal turgor Neurological: cranial nerve grossly intact, no focal deficits Musculoskeletal: normal tone, normal strength, no muscle wasting Psychiatric: normal affect, A&O x 3 Hosp A/P (1) JESSICA (acute kidney injury) Code(s): N17.9 - ACUTE KIDNEY FAILURE, UNSPECIFIED Status: Acute Plan: Likely due to ATN, resolving, continue low-volume IVF's another 24h then d/c, avoid nephrotoxic meds and limit contrast (2) Hypotension Status: Acute Qualifiers: Hypotension type: unspecified hypotension type Qualified Code(s): I95.9 - Hypotension, unspecified Plan: Overall improved, off Levophed gtt, close monitoring, hold antihypertensives, continue Midodrine (3) Chronic anemia Code(s): D64.9 - ANEMIA, UNSPECIFIED Status: Chronic Plan: s/p recent esophageal variceal banding in context of cirrhosis, no active bleeding currently, serial H/H monitoring (4) DM type 2 (diabetes mellitus, type 2) Status: Chronic Qualifiers: Diabetes mellitus sports reporter insulin use: without correction use Plan: ISS, hold Metformin due to JESSICA, serial accuchecks - Plan PT/OT, geriatric social worker, DVT proph w/SCDs Stable overall Continue Midodrine OOB with PT Hold Metformin Continue IVF's another 24h AM Lab: BMP, H/H Transfer to Tele
[2020-10-24] MEDS: HumaLOG 300 UNITS/3 ML VIAL SC PRN ×2 (11:43→21:38)
--- NOTE | 2020-10-24 22:08 | PRG ---
DATE OF SERVICE: 10/24/2020 SUBJECTIVE: The patient is seen and examined. OBJECTIVE: VITAL SIGNS: Noted with the following vital signs: Blood pressure 127/61, pulse 89, respiratory rate is 16, O2 saturation 100%. HEENT: Unremarkable. CARDIOVASCULAR SYSTEM: First and second heart sounds were heard. RESPIRATORY SYSTEM: Clear to auscultation. DIGESTIVE SYSTEM: Revealed a benign abdomen. EXTREMITIES: No peripheral edema. SKIN: No new gross rash. LYMPHATICS: No peripheral lymphadenopathy. IMPRESSION: 1. Acute on chronic kidney disease, improved. 2. Severe hyperkalemia, status post hemodialysis, improved. PLAN: The patient seems to be doing well from the renal standpoint. The patient is good for discharge. Job ID: [id number]
[2020-10-25] MEDS: Midodrine HCl 5 MG TAB PO SCH (09:20)
--- NOTE | 2020-10-25 11:37 | PDOC.HOSPP ---
- Subjective Encounter Date: 10/25/20 Encounter Time: 11:35 Subjective: f/u for JESSICA/ATN/Cirrhosis/Hypotension currently receiving low-volume IVF's with improved BP trend. - Objective Vital Signs & Weight: Vital Signs (12 hours) Temp Pulse Resp BP BP Pulse Ox 10/25/20 08:58 98.0 F 89 16 121/57 L 98 10/25/20 04:00 98.5 F 84 15 116/28 L 94 L Weight Weight 170 lb 13.732 oz Most Recent Monitor Data Heart Rate from ECG 88 NIBP 127/61 NIBP BP-Mean 83 Respiration from ECG 22 SpO2 100 I&O: 10/24/20 10/25/20 10/26/20 06:59 06:59 06:59 Intake Total 1994.4 1107 Output Total 1600 400 Balance 394.4 707 Result Diagrams: 10/23/20 03:06 10/23/20 03:06 Additional Labs: Accuchecks 10/25/20 10/24/20 10/24/20 06:07 20:36 11:41 POC Glucose 118 H 240 H 170 H Hospitalist ROS - Medication Medications: Active Medications Generic Name Dose Route Start Last Admin Trade Name Freq PRN Reason Stop Dose Admin Acetaminophen 650 mg 10/21/20 17:08 10/24/20 00:35 Acetaminophen 325 Mg Tab PO 650 mg Q4H PRN Administration Headache/Fever/Mild Pain (1-3) Sodium Chloride 1,000 mls @ 50 mls/hr 10/22/20 11:15 10/24/20 21:38 Normal Saline 0.9% IV 1,000 mls .Q20H KINGA Administration Norepinephrine Bitartrate 250 mls @ 0 mls/hr 10/23/20 05:00 10/23/20 14:43 Levophed IVPB 250 mls INF KINGA Administration Protocol Titrate Insulin Human Lispro 0 units 10/21/20 17:10 10/24/20 21:38 Humalog 300 Units/3 Ml Vial SC 3 unit .MILD SLIDING SCALE PRN Administration Mild Correctional Scale Midodrine 10 mg 10/22/20 09:00 10/25/20 09:20 Midodrine Hcl 5 Mg Tab PO 10 mg TID KINGA Administration Pantoprazole Sodium 40 mg 10/22/20 09:00 10/25/20 09:20 Pantoprazole 40 Mg Tab PO 40 mg DAILY KINGA Administration Sodium Chloride 10 ml 10/21/20 21:00 10/25/20 09:20 Flush - Normal Saline 10 Ml Syringe IVF Not Given Q12HR [facility] Hospitalist Exam Vitals: Vital Signs (12 hours) Temp Pulse Resp BP BP Pulse Ox 10/25/20 08:58 98.0 F 89 16 121/57 L 98 10/25/20 04:00 98.5 F 84 15 116/28 L 94 L Weight Weight 170 lb 13.732 oz Most Recent Monitor Data Heart Rate from ECG 88 NIBP 127/61 NIBP BP-Mean 83 Respiration from ECG 22 SpO2 100 Hosp A/P (1) JESSICA (acute kidney injury) Code(s): N17.9 - ACUTE KIDNEY FAILURE, UNSPECIFIED Status: Acute (2) Hypotension Status: Acute Qualifiers: Hypotension type: unspecified hypotension type Qualified Code(s): I95.9 - Hypotension, unspecified (3) Chronic anemia Code(s): D64.9 - ANEMIA, UNSPECIFIED Status: Chronic (4) DM type 2 (diabetes mellitus, type 2) Status: Chronic Qualifiers: Diabetes mellitus termite helper insulin use: without group home use - Plan Stable overall Continue Midodrine OOB with PT Hold Metformin Continue IVF's another 24h AM Lab: BMP, H/H Transfer to Tele
[2020-10-25 13:15] VITALS: BP 113/56; TEMP 98.1
[2020-10-25] MEDS: HumaLOG 300 UNITS/3 ML VIAL SC PRN (13:32)
--- NOTE | 2020-10-26 12:11 | DIS ---
DATE OF ADMISSION: 10/21/2020 DATE OF DISCHARGE: 10/25/2020 DISCHARGE DIAGNOSES: 1. Acute kidney injury, likely iatrogenic and component of acute tubular necrosis, improved. 2. Hypotension, iatrogenic. 3. Chronic anemia. 4. Hepatic cirrhosis. 5. Diabetes mellitus type 2. 6. Hyperkalemia, resolved. CONSULTATIONS: Dr. Fred Harmon with Nephrology Service. PERTINENT LABORATORY AND X-RAY FINDINGS: Potassium ranged between 3.4 to 8.1. Creatinine ranged between 1.32 to 2.44. Estimated GFR ranged between 20 to 40. BNP 448. LFTs within normal limits. CBC showed a hemoglobin ranged between 8.8 to 11.3. COVID-19 PCR not detected on 10/21/2020. Hepatitis B and hepatitis C antibody nonreactive on 10/21/2020. Blood cultures x2 dated 10/21/2020 showed no growth at 48 hours. Portable chest x-ray dated 10/21/2020 showed no acute cardiopulmonary process. HOSPITAL COURSE: The patient was initially admitted after presenting with increased generalized weakness, dizziness, and hypotension, discovered with acute kidney injury and hyperkalemia with initial potassium of 8.1. The patient was evaluated in the emergency room, undergoing Trialysis catheter placement and initiated on emergent hemodialysis. The patient had rapid correction of the hyperkalemia with overall improvement in renal function. The patient was evaluated by the Nephrology Service with recommendations for low volume IV fluids in addition to avoidance of nephrotoxic agents. The patient's home blood pressure regimen was held during the entire hospital course due to hypotension and concern for worsening renal failure. The patient's blood pressure improved with IV fluid hydration in addition to midodrine. The patient overall clinically stabilized after initially requiring the emergent hemodialysis as well as IV fluids, low volume, vasopressor support transiently in the ICU. The patient transitioned to the telemetry unit, maintaining stable blood pressures and stabilization of renal function. I have examined the patient at the time of discharge and discussed followup instructions. The patient verbalized understanding and agreement, ready for discharge on 10/25/2020. DISCHARGE MEDICATIONS: 1. Crestor 20 mg p.o. daily. 2. Metformin 500 mg p.o. b.i.d. 3. Oxybutynin 5 mg p.o. daily. 4. Spironolactone 25 mg p.o. b.i.d., hold until evaluated by Gastroenterology Service. 5. Propranolol 20 mg p.o. b.i.d., may resume on 10/28/2020. 6. Lasix 40 mg p.o. daily, may resume on 10/27/2020. 7. Midodrine 5 mg p.o. b.i.d. 8. Protonix 40 mg p.o. daily. FOLLOWUP: The patient may follow up with her primary care provider, Dr. Isa Steven. The patient may follow up with her cartridge belt puncher, Dr. Lawson, at [facility]. CONDITION ON DISCHARGE: Fair. ACTIVITY: Ad-latasha. DIET: Heart healthy, ADA, and low sodium. CODE STATUS: Full. DISPOSITION: To home on 10/25/2020. TIME SPENT: Total time preparing and coordinating discharge, 34 minutes. Job ID: [id number]
--- NOTE | 2020-10-28 04:09 | PQF ---
CLINICAL DOCUMENTATION CLARIFICATION FORM: Dear : Maximino Joaquin Date / Time: 10/28/2020 [id number] Please exercise your independent, professional judgment in responding to the clarification form. Clinical indicators are provided on the bottom of this form for your review Please check appropriate box(es) to clarify if the following diagnosis has been ruled in our ruled out: Hepatorenal Syndrome [ ] Ruled in diagnosis [ ] Continue to treat [ ] Resolved [ ] Ruled out diagnosis [ ] Improving [ x ] Cannot rule out diagnosis [ ] Other diagnosis,please specify [ ] Unable to determine Physician Signature: Date/Time: For continuity of documentation, please document condition throughout progress notes and discharge summary. Thank You To be completed by CDI/Coding staff for physician review: Present Clinical Indicators - Signs / Symptoms / Labs Results and Location in Medical Record [x] Creatinine 2.44, BUN 30, GFR 20, AST 25, ALT 18, Albulin 4.1, Globulin 4.0, ratio 1.0 Laboratory 10/21 [x] BP 91/56, Pulse 53, Resp 22, Temp 97.8 Shannon signs 10/21 [x] felt weak and felt like her whole bdoy was going to numb H&P p1 10/21 Dr Reddy [x] Acute renal failure possibly from ATN avs hepatorenal H&P p5 10/21 Dr Reddy [x] Acute on chronic kidney disease. This is possibly a component of hepatorenal syndrome plus or minus hemodynamically-mediated prerenal acute kidney injury in context of low blood pressure Consult Dr Harmon 10/22 Present Risk Factors Results and Location in Medical Record [x] 69 year-old Female H&P p1 02 Dr Reddy [x] Cirrhosis of liver H&P p2 02/ Dr Reddy [x] Smoker H&P p2 02/ Dr Reddy [x] DM H&P p2 02 Dr Reddy [x] HTN H&P p2 02/ Dr Reddy Present Treatments Results and Location in Medical Record [x] Dialysis Renal Panel 10/21 [x] IVF NS 1L NOV 17 [x] IV Levophed 250 ml Nov 17 [x] Renal Consult Consult Dr Harmon 10/22 CDS/Privacy Attorney Signature: Maris Tolbert Phone #: [phone] Date/Time: 10/28/20 0408 This is a permanent part of the Medical Record [facility]
== END 2020-10-25 14:47 | disposition home or self-care (01) | DRG 682 ==
LOC: ERS 13:57 → ERHOLD 16:46 → CCU 10-23 01:27 → 2NO 10-24 17:15
PROVIDERS: ADMIT Internal Medicine; ATTEND Family Medicine
PROC: 5A1D70Z Performance of Urinary Filtration, Intermittent, Less than 6 Hours Per Day (ICD-10-PCS; principal; 2020-10-21)
PROC: 06HY33Z Insertion of Infusion Device into Lower Vein, Percutaneous Approach (ICD-10-PCS; 2020-10-21)
PROC: 3E033XZ Introduction of Vasopressor into Peripheral Vein, Percutaneous Approach (ICD-10-PCS; 2020-10-22)
DX: N17.0 Acute kidney failure with tubular necrosis (principal); K76.7 Hepatorenal syndrome; E87.1 Hypo-osmolality and hyponatremia; E87.5 Hyperkalemia; I95.89 Other hypotension; K74.60 Unspecified cirrhosis of liver; Z20.822 Contact with and (suspected) exposure to COVID-19; F17.210 Nicotine dependence, cigarettes, uncomplicated; E83.51 Hypocalcemia; N18.9 Chronic kidney disease, unspecified; E11.22 Type 2 diabetes mellitus with diabetic chronic kidney disease; I12.9 Hypertensive chronic kidney disease with stage 1 through stage 4 chronic kidney disease, or unspecified chronic kidney disease; D63.1 Anemia in chronic kidney disease; Z23 Encounter for immunization; Z90.49 Acquired absence of other specified parts of digestive tract; Z79.899 Other long term (current) drug therapy; Z79.84 Long term (current) use of oral hypoglycemic drugs
CPT/HCPCS: 36415; 36416; 36556; 71045; 80048; 80053; 81003; 81015; 82330; 82803; 83605; 83735; 83880; 84484; 85025; 85027; 86704; 86706; 86803; 87040; 87340; 87635; 90935; 93005; 96365; 96375; G0257; J0561; J0692; J1644; J1815; J2001; J7070; S0028; U0003; U0005

== ENCOUNTER 2021-12-13 19:06 | Emergency (ER) | payer MEDICARE, OTHER ==
[2021-12-13 20:16] LABS: #Eosinphils 0.1 thou/uL (0.0-0.7); #Lymphocytes 1.1 thou/uL (1.20-3.40); #Monocytes 0.6 thou/uL (0.11-0.59); #Neutrophils 4.2 thou/uL (1.40-6.50); %Basophils 0.3 % (0.0-1.0); %Eosinophils 2.5 % (0.0-10.0); %Lymphocytes 18.5 % (21.0-51.0); %Monocytes 9.1 % (0.0-10.0); %Neutrophils 69.6 % (42.0-75.0); Hemoglobin 12.8 g/dL (12.0-16.0); Mean Corpuscular HGB CONC 33.6 g/dL (32.0-36.0); Mean Corpuscular Hemoglobin 31.9 pg (27.0-31.0); Mean Corpuscular Volume 94.9 fL (78.0-98.0); Mean Platelet Volume 7.6 fL (7.4-10.4); Platelet Count 191 thou/uL (130-400); RBC Distribution Width 12.4 % (11.5-14.5); Red Blood Cell (RBC) Count 4.01 mill/uL (4.20-5.40)
[2021-12-13 20:39] LABS: ALT (SGPT) 15 U/L (8-55); AST (SGOT) 26 U/L (5-34); Albumin 3.6 g/dL (3.4-4.8); Alkaline Phosphatase 172 U/L (40-110); Anion Gap 10 mmol/L (10-20); BUN (Urea Nitrogen) 13 mg/dL (9.8-20.1); Bilirubin, Total 0.6 mg/dL (0.2-1.2); Calc. Creatinine Clearance 0 mL/min (70-130); Calcium 8.6 mg/dL (7.8-10.44); Carbon Dioxide 24 mmol/L (23-31); Chloride 107 mmol/L (98-107); Glucose 136 mg/dL (83-110); Lipase 42 U/L (8-78); Potassium 4.3 mmol/L (3.5-5.1); Protein, Total 6.6 g/dL (5.8-8.1); Sodium 137 mmol/L (136-145)
[2021-12-13 21:05] LABS: Bacteria/HPF 3+ HPF (None Seen); Bilirubin Negative (Negative); Blood, Urine Negative (Negative); Clarity Clear (Clear); Glucose, Urine (Dipstick) Normal (Negative); Ketone, Urine Trace mg/dL (Negative); Leukocyte Negative Leu/uL (Negative); Nitrite 1+ (Negative); Protein, Urine (Dipstick) 30 mg/dL (Neg-Trace); RBC/HPF None Seen HPF (0-3); Specific Gravity, Urine 1.023 (1.002-1.036); WBC/HPF 0-3 HPF (0-3); pH, Urine 5.5 (5.0-9.0)
[2021-12-13] MEDS ORDERED: Xylocaine 1% w/ Epi 1:100K 10 ML VIAL ONE (22:44)
[2021-12-13 23:58] LABS: Body Fluid Source Paracentesis Fluid; RBC Count-Automated (BF) 1826 /cu.mm; Tube # EDTA; WBC/Nucleated-Auto (BF) 666 /cu.mm
[2021-12-13 23:59] LABS: BF Color Yellow; Clarity Cloudy/Turbid (Clear)
[2021-12-14 00:08] LABS: BF Segmented Neutrophils 9 %; Cell Count Non Hematic 52 %; Lymphocytes 39 %
== END 2021-12-13 23:20 | disposition home or self-care (01) ==
LOC: ERS 19:06
DX: R18.8 Other ascites (principal); E11.9 Type 2 diabetes mellitus without complications; I10 Essential (primary) hypertension; E78.5 Hyperlipidemia, unspecified; F17.210 Nicotine dependence, cigarettes, uncomplicated; Z79.84 Long term (current) use of oral hypoglycemic drugs; Z79.899 Other long term (current) drug therapy; N17.9 Acute kidney failure, unspecified
CPT/HCPCS: 36415; 71045; 80053; 81003; 81015; 83690; 83880; 84484; 85027; 85060; 87070; 87205; 89051